=== PATIENT | female | born 1935 | race Caucasian/White ===

== ENCOUNTER 2019-10-30 14:57 | Inpatient (IN) ==
[2019-10-30] MEDS ORDERED: MORPHINE IV ONE (15:05)
[2019-10-30] MEDS ORDERED: ATIVAN IV ONE (15:05)
[2019-10-30] MEDS ORDERED: NS 1,000 ML IV ONE (15:05)
[2019-10-30] MEDS ORDERED: ZOFRAN IV ONE (15:05)
[2019-10-30] MEDS ORDERED: HALDOL IV ONE (15:07)
--- NOTE | 2019-10-30 15:34 | Diag Imaging Result Doc PS360 ---
EXAM: CHEST-PORTABLE HISTORY: fall TECHNIQUE: Single view COMPARISON: None. FINDINGS: The lungs are well expanded. No contusion. No pneumothorax. The heart is not enlarged. The vessels are not distended. There are no infiltrates. No effusion identified. IMPRESSION: No injury Electronically signed by Arvind Alfredo 10/30/2019 3:32 PM
[2019-10-30 16:48] LABS: BASO# 0.03 X1000 (0.0-0.2); BASO% 0.1 % (0.0-0.8); EOS# 0.01 X1000 (0.0-0.7); HEMATOCRIT 32.2 % (37.0-47.0); HEMOGLOBIN 10.4 g/dL (12.0-16.0); IMM GRAN# 0.08 X1000 (0.0-0.04); IMM GRAN% 0.4 % (0.0-0.5); LYMPH% 4.4 % (20.5-51.1); MCH 30.7 PG (27-31); MCHC 32.3 g/dL (33-37); MONO% 9.4 % (1.7-9.3); MPV 9.5 FL (7.4-10.4); NEUT# 17.37 X1000 (1.4-6.5); NEUT% 85.7 % (42.2-75.2); PLT 369 X1000 (130-400); RBC 3.39 XMIL (4.2-5.4); RDW 13.4 % (11.5-14.5); WBC 20.29 X1000 (4.8-10.8)
[2019-10-30 16:55] LABS: INR 1.13; PROTIME 14.7 Seconds (11.0-16.0)
[2019-10-30 16:56] LABS: PTT 32.7 Seconds (22.3-41.8)
[2019-10-30 17:04] LABS: AGAP 17; ALB/GLOB RATIO 1.8; ALBUMIN 3.5 g/dL (3.5-5.0); ALKALINE PHOSPHATASE 48 U/L (32-104); BUN 14 mg/dL (8-22); CHLORIDE 100 mmol/L (98-107); CK PROFILE 33 U/L (24-173); COSMO 279; CREATININE 0.6 mg/dL (0.5-0.9); ESTIMATED GFR > 60; GLUCOSE 91 mg/dL (70-104); GOT 23 U/L (10-30); GPT 10 U/L (10-36); LIPASE 9 U/L (13-60); MAGNESIUM 1.6 mg/dL (1.5-2.7); POTASSIUM 3.8 mmol/L (3.5-5.1); SODIUM 140 mmol/L (136-145); TCO2 23 mmol/L (25-35); TOTAL BILIRUBIN 0.74 mg/dL (0.20-1.00); TOTAL PROTEIN 5.5 g/dL (6.3-8.3)
--- NOTE | 2019-10-30 17:38 | Diag Imaging Result Doc PS360 ---
EXAM: CT HEAD/C-SPINE W/O CONTRAST - 10/30/2019 HISTORY: head injury/pain TECHNIQUE: CT head/cervical spine without contrast COMPARISON: None. FINDINGS: CT head: There are atrophic changes and chronic appearing microvascular ischemic changes. There is no indication of recent infarct, although acute infarcts may not be immediately visible. There is no evidence of skull fracture. Visualized portions of paranasal sinuses and mastoid air cells appear clear. CT cervical spine: There is multilevel degenerative disease with posterior disc protrusions, posterior osteophytes, and facet degeneration. There is associated moderate spinal stenosis at C5-6 and C6-7. There is multilevel neural foraminal stenosis. There is no fracture, subluxation, or precervical soft tissue swelling identified. There are atherosclerotic calcifications noted at the carotid bulb regions. IMPRESSION: CT head: No visible acute intracranial abnormality. No evidence of intracranial injury. CT cervical spine: Substantial multilevel degenerative disease. No evidence of fracture or subluxation. This exam was performed using automated exposure control, adjustment of mA or kV according to patient size, and/or use of iterative reconstruction technique. Electronically signed by Sheldon Dowell 10/30/2019 5:36 PM
--- NOTE | 2019-10-30 17:42 | Diag Imaging Result Doc PS360 ---
EXAM: CT PELVIS W/O CONTRAST - 10/30/2019 HISTORY: fall with right femoral neck fracture TECHNIQUE: CT bony pelvis without contrast COMPARISON: None. FINDINGS: There is a fracture of the right femoral neck with mild impaction. There is no other fracture identified. There is no hip dislocation. IMPRESSION: Fracture of right femoral neck, with mild impaction. This exam was performed using automated exposure control, adjustment of mA or kV according to patient size, and/or use of iterative reconstruction technique. Electronically signed by Sheldon Dowell 10/30/2019 5:40 PM
[2019-10-30] MEDS ORDERED: ROCEPHIN 1 GM in NS 50 ML IV ONE (17:43)
--- NOTE | 2019-10-30 18:07 | PROVIDER DOCUMENTATION ---
This chart was entered by Cecily Hogan Scribe, acting as scribe for Monroe Diamond MD. HPI-Musculoskeletal Pain/Inj - GENERAL Stated Complaint: FALL Time Seen by Provider: 10/30/19 14:57 Source: EMS - HX OF PRESENT ILLNESS-MUSKULOSKELTAL Nature of Presenting Problem: Patient is a 84 year old female who presents to the ED via EMS for right hip fracture. EMS states SNF stated patient fell around 0800 this morning. EMS reports SNF had an xray done and xray resulted as acute displaced right femoral neck fracture. EMS states patient has dementia and SNF reported patient being at baseline. Quality of Pain: reports: aching Severity in ED: mild Onset/Duration: this morning (0800) Timing: still present Any recent injury?: Yes (fall ) Locality of Occurance: Home Similar Symptoms Previously?: No Recently seen or treated by another doctor?: No - FALL INJURY Location of Pain/Injury: reports: other (right hip) Reason for Fall: reports: unknown Loss of Consciousness: unsure - HIP/PELVIS PAIN/INJURY Hip Pain Location: reports: hip (R) Context / Method of Injury: reports: fall - LOWER EXTREMITY PAIN/INJURY Lower Extremities Pain: hip: right Context / Method of Injury: reports: fell Review of Systems - Adult - REVIEW OF SYSTEMS - ADULT ROS:: unobtainable per condition (unable to obtain due to patient having dementia.) Constitutional: reports: no symptoms reported Eyes: reports: no symptoms reported Ears, Nose, Mouth & Throat: reports: no symptoms reported Cardiovascular: reports: no symptoms reported Respiratory: reports: no symptoms reported Gastrointestinal: reports: no symptoms reported Genitourinary: reports: no symptoms reported Musculoskeletal: reports: no symptoms reported Integumentary: reports: no symptoms reported Neurological: reports: no symptoms reported Psychiatric: reports: no symptoms reported Endocrine: reports: no symptoms reported Hematologic/Lymphatic: reports: no symptoms reported Allergic/Immunologic: reports: no symptoms reported All Other Systems: Reviewed and Negative Past History - Adult - PAST MEDICAL HISTORY-ADULT Review of Records: reports: Old Records Reviewed, Nursing Assessment Review, Medications Reviewed, Social history reviewed & non-contributory. Major Childhood Illnesses: reports: denies history Cardiovascular: reports: denies history Respiratory: reports: denies history Gastrointestinal: reports: denies history Obstetrical/Gynecological: reports: denies history Genitourinary: reports: denies history Musculoskeletal: reports: denies history Neurological: reports: dementia Endocrine/Immune: reports: denies history Other Conditions: reports: denies history - IMMUNIZATION STATUS Childhood Immunizations: See Nurse Assessment Flu Vaccine: See Nurse Assessment - FAMILY HISTORY Family History: reviewed, not pertinent - SOCIAL HISTORY Smoking: other (unable to obtain due to patient having dementia) Substance Use: other (unable to obtain due to patient having dementia) Living Situation: care facility (SNF) Physical Exam-Injury Related - Physical Exam-Injury Related Initial Vital Signs Reviewed: Yes General Appearance: alert, no apparent distress, other (mumbling continuously). negative: obtunded Head, Ears, Nose, Mouth & Throat: normocephalic/atraumatic, other (dry mucous membranes). negative: angioedema Respiratory: chest non-tender, lungs clear, normal breath sounds. negative: rhonchi, wheezing Cardiovascular: regular rate, rhythm, systolic murmur (2/6 systolic murmur at apex). negative: tachycardia Abdominal Exam: normal bowel sounds, non tender, soft. negative: rigid Extremity: other (1 + pitting edema to bilateral lower extremities. right leg shortened. pain on movment to right leg.). negative: erythema Integumentary: normal color, warm/dry. negative: abrasion, laceration Neurologic: other (unable to assess per patient's condition) Progress - PLAN OF CARE/RESULTS Progress/Plan/Lab Results: Vital Signs - 8 hr 10/30/19 15:17 Temperature 99.1 F Pulse Rate 98 H Respiratory Rate 18 Blood Pressure 163/106 O2 Sat by Pulse Oximetry 99 Laboratory Results - last 24 hr 10/30/19 10/30/19 10/30/19 16:10 16:10 16:10 WBC 20.29 H RBC 3.39 L Hgb 10.4 L Hct 32.2 L MCV 95.0 MCH 30.7 MCHC 32.3 L RDW Std Deviation 13.4 Plt Count 369 MPV 9.5 Immature Gran % (Auto) 0.4 Neut % (Auto) 85.7 H Lymph % (Auto) 4.4 L Pershing % (Auto) 9.4 H Eos % (Auto) 0.0 Baso % (Auto) 0.1 Immature Gran # (Auto) 0.08 H Neut # (Auto) 17.37 H Lymph # (Auto) 0.90 L Pershing # (Auto) 1.90 H Eos # (Auto) 0.01 Baso # (Auto) 0.03 PT INR PTT (Actin FS) Sodium 140 Potassium 3.8 Chloride 100 Carbon Dioxide 23 L Anion Gap 17 BUN 14 Creatinine 0.6 Estimated GFR/1.73 m2 > 60 BUN/Creatinine Ratio 23 Glucose 91 POC Glucose Calculated Osmolality 279 Calcium 9.0 Magnesium 1.6 Total Bilirubin 0.74 AST 23 ALT 10 Alkaline Phosphatase 48 Creatine Kinase 33 Troponin T Rdc-B-Uheatgpcdaf Pept Total Protein 5.5 L Albumin 3.5 Globulin 2.0 Albumin/Globulin Ratio 1.8 Lipase 9 L Plasma Lactate Valproic Acid 51.90 10/30/19 10/30/19 10/30/19 16:10 16:10 16:10 WBC RBC Hgb Hct MCV MCH MCHC RDW Std Deviation Plt Count MPV Immature Gran % (Auto) Neut % (Auto) Lymph % (Auto) Pershing % (Auto) Eos % (Auto) Baso % (Auto) Immature Gran # (Auto) Neut # (Auto) Lymph # (Auto) Pershing # (Auto) Eos # (Auto) Baso # (Auto) PT 14.7 INR 1.13 PTT (Actin FS) 32.7 Sodium Potassium Chloride Carbon Dioxide Anion Gap BUN Creatinine Estimated GFR/1.73 m2 BUN/Creatinine Ratio Glucose POC Glucose Calculated Osmolality Calcium Magnesium Total Bilirubin AST ALT Alkaline Phosphatase Creatine Kinase Troponin T Gpg-W-Jfdplejzozk Pept 1864 H Total Protein Albumin Globulin Albumin/Globulin Ratio Lipase Plasma Lactate 1.0 Valproic Acid 10/30/19 10/30/19 16:10 16:16 WBC RBC Hgb Hct MCV MCH MCHC RDW Std Deviation Plt Count MPV Immature Gran % (Auto) Neut % (Auto) Lymph % (Auto) Pershing % (Auto) Eos % (Auto) Baso % (Auto) Immature Gran # (Auto) Neut # (Auto) Lymph # (Auto) Pershing # (Auto) Eos # (Auto) Baso # (Auto) PT INR PTT (Actin FS) Sodium Potassium Chloride Carbon Dioxide Anion Gap BUN Creatinine Estimated GFR/1.73 m2 BUN/Creatinine Ratio Glucose POC Glucose 83 Calculated Osmolality Calcium Magnesium Total Bilirubin AST ALT Alkaline Phosphatase Creatine Kinase Troponin T 0.014 Smd-X-Snbcgguegsi Pept Total Protein Albumin Globulin Albumin/Globulin Ratio Lipase Plasma Lactate Valproic Acid Orders Category Date Time Status Finger Stick Blood Sugar (ED) DIRECTED Care 10/30/19 15:01 Active M[facility] Cath Insertion ORDERED Care 10/30/19 15:01 Active Nursing- Obtain EKG once Care 10/30/19 15:01 Active Saline Loc NOW Care 10/30/19 15:02 Active CHEST-PORTABLE [RAD] Stat Exams 10/30/19 15:[address] HEAD/C-SPINE W/O CONTRAST [CT] Stat Exams 10/30/19 15:[address] PELVIS W/O CONTRAST [CT] Stat Exams 10/30/19 15:04 Completed BLOOD CULTURE [BLDCUL] Stat Lab 10/30/19 15:02 Uncollected CBC WITH ELECTRONIC DIFF [HEME] Stat Lab 10/30/19 16:10 Completed CK PROFILE [SP CHEM] Stat Lab 10/30/19 16:10 Completed COMPREHENSIVE METABOLIC PANEL [CHEM] Stat Lab 10/30/19 16:10 Completed INFLUENZA SCREEN A/B Stat Lab 10/30/19 15:02 Uncollected LACTATE, PLASMA [CHEM] Stat Lab 10/30/19 16:10 Completed LIPASE [CHEM] Stat Lab 10/30/19 16:10 Completed MAGNESIUM [CHEM] Stat Lab 10/30/19 16:10 Completed PRO B-NATRIURETIC PEPTIDE Stat Lab 10/30/19 16:10 Completed PROTIME WITH INR [COAG] Stat Lab 10/30/19 16:10 Completed PTT [COAG] Stat Lab 10/30/19 16:10 Completed TROPONIN T Stat Lab 10/30/19 16:10 Completed TYPE & SCREEN [BBK] Stat Lab 10/30/19 15:03 Uncollected URINALYSIS W/POSS RFLX CULT [URINALYSIS] Stat Lab 10/30/19 15:03 Uncollected VALPROIC ACID [TDM] Stat Lab 10/30/19 16:10 Completed 0.9% Sodium Chloride Inj [Ns] 1,000 ml Med 10/30/19 15:05 Discontinued IV 999 mls/hr CefTRIAXONE [Rocephin] 1 gm Med 10/30/19 17:43 Active 0.9% Sodium Chloride Inj [Ns] 50 ml IV NOW Haloperidol Lactate [Haldol] Med 10/30/19 15:07 Discontinued 2 mg IV NOW ONE Lorazepam [Ativan] Med 10/30/19 15:05 Discontinued 0.5 mg IV NOW ONE Morphine Med 10/30/19 15:05 Discontinued 2 mg IV NOW ONE Ondansetron [Zofran] Med 10/30/19 15:05 Discontinued 4 mg IV NOW ONE EKG [EKG] Stat Ther 10/30/19 15:02 Ordered Result Diagrams: 10/30/19 16:10 10/30/19 16:10 - XRAY 1 XRAY Study: Chest Impression: See EMR Report ( EXAM: CHEST-PORTABLE HISTORY: fall TECHNIQUE: Single view COMPARISON: None. FINDINGS: The lungs are well expanded. No contusion. No pneumothorax. The heart is not enlarged. The vessels are not dis tended. There are no infiltrates. No effusion identified. IMPRESSION: No injury Electronically signed by Arvind Alfredo 10/30/2019 3:32 PM 10/30/19 1532 Interpreting Physician: rAvind Alfredo MD Dictated Date/Time: 10/30/19 1531 cc: Monroe Diamond MD; Etienne Ortiz MD) - CONSULTS/PCP/HOSPITALIST Notification #1 *Consult/PCP/Hospitalist*: Porfirio Time Discussed: 18:04 Reason/Comments: NPO after MN Consult Disposition: Admit (to hospitalist) #2 Consult: Rajani Time Discussed: 18:05 Consult Disposition: Will see in ED, Admit Departure - Departure Date of Disposition Decision: 10/30/19 Time of Disposition Decision: 18:05 DIAGNOSIS: Displaced fracture of right femoral neck, Urinary tract infection, bacterial Fall at correction Qualifiers: Encounter type: initial encounter Qualified Code(s): W19.XXXA - Unspecified fall, initial encounter; Y92.129 - Unspecified place in correction as the place of occurrence of the external cause Alzheimer's dementia without behavioral disturbance Qualifiers: Alzheimer's disease onset: late-onset Qualified Code(s): G30.1 - Alzheimer's disease with late onset; F02.80 - Dementia in other diseases classified elsewhere without behavioral disturbance Disposition: ADMITTED INPATIENT 09 Certified Medical Emergency: Emergent Condition: Fair Referrals and Follow-Ups: Etienne Ortiz MD [Primary Care Provider] - - Critical Care Note This patient required my direct & personal management of CC.: No Attestation - Physician/ ROLLY Attestation Patient care was provided by Advanced Practice Provider:: No The physician spent face to face time with patient:: Yes Advanced Practice Provider documentation review:: Supervising physician onsite and consulted in the evaluation and care of this patient. The physician did have a face to face encounter with the patient. This chart was documented by the indicated scribe, (Cecily Hogan Scribe) and accurately reflects the services I performed and decisions made by me, Monroe Diamond MD, as attested by the provider's signature.
[2019-10-30 18:24] LABS: URINE SOURCE CLEAN CATCH
[2019-10-30] MEDS ORDERED: TYLENOL PO PRN ×2 (18:29→20:33)
[2019-10-30 18:31] LABS: BILIRUBIN URINE NEGATIVE (NEGATIVE); BLOOD URINE TRACE (NEGATIVE); COLOR YELLOW; GLUCOSE URINE NEGATIVE (NEGATIVE); KETONE URINE 40 mg/dL (NEGATIVE); LEUKOCYTES URINE LARGE (NEGATIVE); NITRITE URINE POSITIVE (NEGATIVE); PH URINE 6.5; PROTEIN URINE TRACE mg/dL (NEGATIVE); SP GRAVITY URINE 1.015; TURBIDITY URINE HAZY (CLEAR); UROBILINOGEN URINE NORMAL (NORMAL)
[2019-10-30 18:33] LABS: UR EPITHELIAL CELLS <10 /HPF (<10); URINE BACTERIA 4+ /HPF; URINE RBC <10 /HPF (<10); URINE WBC TNTC /HPF (<10)
[2019-10-30] MEDS ORDERED: STERILE WATER INJ. INJ PRN (20:33)
[2019-10-30] MEDS: LEVAQUIN 500 MG/D5W 500 MG/100 ML IVPB IV SCH (20:33)
[2019-10-30] MEDS ORDERED: MILK OF MAGNESIA PO PRN (20:33)
[2019-10-30] MEDS ORDERED: GEODON IM PRN (20:33)
[2019-10-30] MEDS ORDERED: MIRALAX PO PRN (20:33)
[2019-10-30] MEDS ORDERED: DEPAKOTE ER PO SCH (21:00)
--- NOTE | 2019-10-30 21:53 | EKG Report ---
Test Performed on : 10/30/2019 8:05:13 PM Test Reason : fall Blood Pressure : / mmHG Vent. Rate : 095 BPM Atrial Rate : 101 BPM P-R Int : 000 ms QRS Dur : 074 ms QT Int : 326 ms P-R-T Axes : 000 025 -12 degrees QTc Int : 409 ms Atrial fibrillation. with premature ventricular or aberrantly conducted complexes. Nonspecific ST and T wave abnormality Abnormal ECG When compared with ECG of 30-OCT-2019 20:04, (Unconfirmed) Inverted T waves have replaced nonspecific T wave abnormality in Inferior leads Unconfirmed Result
--- NOTE | 2019-10-30 22:03 | Diag Imaging Result Doc PS360 ---
EXAM: FEMUR MIN 2 VIEWS RIGHT - 10/30/2019 HISTORY: Hip Fracture TECHNIQUE: Right femur four views COMPARISON: 10/30/2019 CT bony pelvis FINDINGS: There is a mildly impacted fracture of the femoral neck as seen on the earlier CT. There is no other fracture, or dislocation, identified. There are atherosclerotic calcifications noted. IMPRESSION: Mildly impacted fracture of right femoral neck. Electronically signed by Sheldon Dowell 10/30/2019 10:00 PM
--- NOTE | 2019-10-30 22:04 | Diag Imaging Result Doc PS360 ---
EXAM: PELVIS - 10/30/2019 HISTORY: Hip Fracture TECHNIQUE: AP pelvis COMPARISON: 10/30/2019 CT bony pelvis FINDINGS: There is no pelvis fracture identified. There is a mildly impacted fracture of the right femoral neck as seen on the earlier CT scan. IMPRESSION: No evidence of pelvis fracture. There is mildly impacted fracture of right femoral neck again noted. Electronically signed by Sheldon Dowell 10/30/2019 10:01 PM
[2019-10-31] MEDS: NS 1,000 ML IV SCH ×4 (00:01→22:24)
[2019-10-31] MEDS: NAMENDA PO SCH ×2 (00:02→22:21)
[2019-10-31] MEDS: ARICEPT PO SCH ×2 (00:02→22:21)
[2019-10-31] MEDS: DEPAKOTE ER PO SCH ×3 (00:02→22:22)
[2019-10-31] MEDS: MORPHINE IV PRN ×4 (00:02→16:25)
--- NOTE | 2019-10-31 03:58 | HISTORY AND PHYSICAL ---
PRIMARY CARE PROVIDER: Unknown. CHIEF COMPLAINT: Per ED records, fall. HISTORY OF PRESENT ILLNESS: Ms. Santiago is an 84-year-old, female. All information is taken from the ED records, patient has dementia, no family is currently at bedside. Per [facility] records, she is a DNR. I do not have any official paperwork stating she is a DNR, Alzheimer's dementia, hypothyroidism, seizure disorder. She presented to the ED via EMS for right hip fracture. The patient was at [facility], fell around 8 a.m. this morning. She had x-rays done there that resulted as an acute displaced right femoral neck fracture. Workup in the ED with a pelvis CT showed a fracture of the right femoral neck with a mild impaction. Head and cervical spine CT showed no visible acute intracranial abnormality. No evidence of intracranial injury. Substantial multilevel degenerative disease, but no evidence of fracture, subluxation. Chest x- ray showed no injury. White count was elevated at 20. Urinalysis showed 4+ bacteria, large leukocytes, too numerous to count WBCs, nitrate positive, trace blood. ED contacted Dr. Ojeda, who requested admit to the hospitalist service. She will be n.p.o. after midnight. They did have to give her pain medication, Ativan and Haldol for agitation. Upon examination, the patient does not really answer any questions, she just mumbles any time I try to ask her any questions. She does not follow any commands. Again, there was no family at bedside. I did contact her nurse, states the family went to go grab some dinner and that they should be back shortly. PAST MEDICAL HISTORY: Seizures, hypothyroidism, Alzheimer's dementia, I believe there are some behavioral disturbances. FAMILY HISTORY: Unknown. SURGICAL HISTORY: Unknown. ALLERGIES: Albuterol, diazepam, Valium, influenza vaccine, penicillin, mayonnaise, mold, mildew, Oseltamivir. HOME MEDICATIONS: 1. Tylenol 650 mg p.o. q.4 hours p.r.n. 2. Briviact 50 mg p.o. b.i.d. 3. Buspirone 5 mg p.o. t.i.d. 4. Cranberry 2 capsules p.o. daily. 5. Depakote 250 mg p.o. b.i.d. 6. Depakote ER 500 mg p.o. b.i.d. 7. Aricept 10 mg p.o. at bedtime. 8. Acidophilus 1 tab p.o. daily. 9. Synthroid 25 mcg p.o. daily. 10. Milk of magnesia 200 mg p.o. q.a.m. constipation. 11. Namenda 5 mg p.o. at bedtime. 12. Pyridium 200 mg p.o. b.i.d. 13. MiraLAX 17 g p.o. daily. 14. MiraLAX 17 g p.o. daily p.r.n. constipation if the patient has not had a BM in 72 hours. 15. Aspercreme 85 g topical t.i.d. REVIEW OF SYSTEMS: Hard to obtain secondary to the patient's dementia as well as IV and sedating medications. PHYSICAL EXAMINATION: VITAL SIGNS: Temperature is 99.9 degrees, heart rate 98, respirations 18, blood pressure 163/106, O2 is 99% on room air. GENERAL: Ms. Santiago is an 84-year-old female who is lying in the bed. She does not really answer any questions or follow any commands. She just moans. HEENT: Appears atraumatic, normocephalic. PERRL. NECK: Supple. Trachea midline. CARDIOVASCULAR: S1, S2 appreciated. No murmurs, gallops, rubs noted. RESPIRATORY: Lung sounds clear. Shallow respirations. GASTROINTESTINAL: Soft, nontender, nondistended. Positive bowel sounds 4 quadrants. EXTREMITIES: Lower extremities, did not appreciate any edema. NEURO: Again, she is not following any commands. Hard to assess secondary to her dementia as well as being sedated. DIAGNOSTIC DATA: Pelvis, head and cervical spine CT per HPI. LABORATORY DATA: White count 20, hemoglobin and hematocrit 10 and 32, platelet count is 369,000. Sodium 140, potassium 3.8, BUN 14, creatinine 0.6. Blood glucose is 91. Magnesium 1.6. Troponin 0.014. ProBNP 1864. Plasma lactate 1.0. Urinalysis: 4+ bacteria, too numerous to count WBCs, leukocytes large, positive for nitrates, trace blood. Valproic acid 51.9. ASSESSMENT AND PLAN: 1. Right femoral neck fracture with mild impaction. The patient will be made NPO after midnight. We will start IV fluids, pain regimen. Dr. Ojeda plans for surgery in the a.m. Apparently, the patient has suffered a fall at [facility]. There is no family at the bedside. All information came from EMR. 2. Seizure history. We will continue Depakote. 3. Alzheimer's dementia. We will continue home medications. 4. Hypothyroidism. We will continue Synthroid. 5. Patient is a possible DO NOT RESUSCITATE. This will have to be confirmed with family. I do not have any official paperwork, just on the transfer sheet from the skilled nursing. 6. Initial agitation on arrival. We will do p.r.n. Geodon IM q.6 hours. 7. Urinary tract infection. We will await urine culture and continue with IV antibiotics. She does have an allergy to PENICILLIN. We will switch her over to levofloxacin from Rocephin. 8. Further recommendation to follow physician evaluation, laboratory and diagnostic data. Dictated by FERNANDO Carey for Ines South MD cc: Ines South MD I performed a face to face encounter on the patient. I reviewed all labs and imaging on the patient. I agree with the H&P as dictated. is a 84 year old female with advanced dementia and seizure disorder who was brought to the ER after suffering a fall at the skilled nursing. In the ER, a right hip x ray was done that revealed a right femoral neck fracture. On exam, the patient was noted to be oriented to self only. Her breath sounds were clear to auscultation bilaterally. No peripheral edema was noted. The patient was also noted to have a urinary tract infection. Will admit the patient to the hospitalist service and consult Orthopedic surgery. Will start IV fluids and IV antibiotics. POWER
[2019-10-31 06:58] LABS: BASO# 0.04 X1000 (0.0-0.2); BASO% 0.3 % (0.0-0.8); EOS# 0.19 X1000 (0.0-0.7); EOS% 1.3 % (0.0-10.0); HEMATOCRIT 29.7 % (37.0-47.0); HEMOGLOBIN 9.5 g/dL (12.0-16.0); IMM GRAN% 0.7 % (0.0-0.5); LYMPH# 1.43 X1000 (1.2-3.4); LYMPH% 9.6 % (20.5-51.1); MCH 30.6 PG (27-31); MCV 95.8 FL (81-99); MONO# 1.53 X1000 (0.11-0.59); MONO% 10.2 % (1.7-9.3); MPV 9.7 FL (7.4-10.4); NEUT# 11.66 X1000 (1.4-6.5); NEUT% 77.9 % (42.2-75.2); PLT 318 X1000 (130-400); RDW 13.3 % (11.5-14.5); WBC 14.95 X1000 (4.8-10.8)
[2019-10-31 07:43] LABS: AGAP 15; BUN 8 mg/dL (8-22); CALCIUM 8.3 mg/dL (8.8-10.2); CHLORIDE 101 mmol/L (98-107); COSMO 273; CREATININE 0.4 mg/dL (0.5-0.9); ESTIMATED GFR > 60; GLUCOSE 76 mg/dL (70-104); POTASSIUM 3.6 mmol/L (3.5-5.1); SODIUM 138 mmol/L (136-145); TCO2 22 mmol/L (25-35)
[2019-10-31 07:56] LABS: MAGNESIUM 1.4 mg/dL (1.5-2.7); PHOSPHORUS 2.5 mg/dL (2.7-4.5)
--- NOTE | 2019-10-31 08:54 | ORTHOPAEDICS CONSULTATION ---
DATE: 10/30/2019 Consult from [facility]. REASON FOR CONSULTATION: Right hip fracture. PAST MEDICAL HISTORY: 1. Seizure disorder. 2. Hypothyroidism. 3. Alzheimer's dementia. 4. Osteoporosis. PAST SURGICAL HISTORY: Pacemaker placement in July of this year. MEDICATIONS: 1. Tylenol. 2. Broviac. 3. Buspirone. 4. Depakote. 5. Aricept. 6. Acidophilus. 7. Synthroid. 8. Namenda. 9. Pyridium. 10. MiraLAX. ALLERGIES: The patient's daughter reports her to have allergy to albuterol, Valium and penicillin. SOCIAL HISTORY: Patient lives at [facility] in the memory loss unit. She has been at [facility] since August of this year. Prior to this she was living at home and was much more mobile and functional. Since her pacemaker placement in July she has had a significant decline in her mental status. Denies any tobacco or alcohol use. She uses a walker to ambulate. REVIEW OF SYSTEMS: Ten point review of systems was completed and is negative other than what is listed in present illness. CHIEF COMPLAINT: Right hip pain. HISTORY OF PRESENT ILLNESS: Ms Santiago is a 84-year-old female who presented to [facility] yesterday after sustaining a same-level fall at [facility] yesterday morning. X-rays taken in the ER demonstrated a right valgus impacted femoral neck fracture. Given these findings, Orthopedic Surgery was consulted. All history was obtained from patient's daughter. The patient is DNR and the paperwork is on the chart. The daughter said she has had a significant decline in mental status since her pacemaker placed back in July of this year. She had about a 2 week period where she basically went into a medically induced coma and lost a significant amount of muscle and strength during that time. Since then, she has had a hard time ambulating and has fallen about 10 times since August per the daughter. She has no other complaints. PHYSICAL EXAMINATION: General: Ms. Santiago is an 84-year-old female who appears well developed, no acute distress. She is awake and alert but not oriented to person, place, or time. Vital signs: Temperature is 97.7 degrees Fahrenheit, heart rate 89, respiratory rate 14, blood pressure 141/69, O2 saturations 96% on binasal cannula. HEENT: Normocephalic and atraumatic. Respiratory: Nonlabored breathing. Cardiovascular: Regular rate and rhythm. Extremities: Examination of right lower extremity shows skin intact. The patient has tenderness to palpation over her right groin and thigh. She has pain with log roll. Nontender in her knee, leg, ankle and foot. Motor is intact EHL, tibialis anterior, gastrocsoleus complex. Sensation intact to light touch L3-S1. Dorsalis pedis pulse palpable and equal bilaterally. Thigh and calf were soft and compressible. IMAGING: AP pelvis as well as AP and lateral of the right femur were obtained demonstrating a valgus impacted femoral neck fracture with minimal displacement. Patient has osteopenic appearing bones. CT scan of the pelvis was also obtained demonstrating a minimally displaced valgus impacted femoral neck fracture. LABORATORY DATA: White count 15, hematocrit 30, platelets 318,000. Sodium 138, potassium 3.6, chloride 101, bicarb 22, BUN 8, creatinine 0.4. Urinalysis significantly positive with positive urine nitrites, large leukocyte esterase and uij-okgqpqsd-wg-count white cells and 4+ bacteria. ASSESSMENT: An 84-year-old female with right valgus impacted femoral neck fracture as well as a significant urinary tract infection. PLAN: Patient has been n.p.o. since midnight. Long discussion was had with the patient and her daughter in regards to treatment options for femoral neck fracture. Given the fracture pattern, I think it is conducive for a closed reduction and percutaneous pinning. This is a much less invasive procedure which I think will be a good for her overall mental status. Risks of surgery include risk of bleeding, infection, damage to nerves and vessels around the area, malunion, nonunion, failure of fixation and need for revision surgery. Also risks of anesthesia including blood clot, stroke, heart attack, even . The patient recently underwent anesthesia for placement of a pacemaker and has had a significant decline in mental status since that time. I told her we will talk with Anesthesia and try to do it via spinal anesthetic, however, if we are unable to obtain that she may have to undergo general anesthesia. All questions were answered. Informed consent was obtained. The plan will be for right hip CRPP later today when OR space is available. Again, keep her n.p.o. until after procedure. Nonweightbearing, right lower extremity until postop. Hold chemical DVT prophylaxis until postoperative. She will need likely 6 week course of anticoagulation upon discharge. Ice to right lower extremity as needed for pain.
[2019-10-31] MEDS: SYNTHROID PO SCH ×2 (11:48→22:20)
[2019-10-31 17:35] LABS: ALLEN TEST YES; BE 0.9 mmoll (-3.0-3.0); BLOOD TYPE ARTERIAL; HCO3-(ACT) 25.6 mmoll (20.0-26.0); METHB 1.4 % (0.0-1.5); O2(CT) 13.9 mL/dL (15.0-23.0); O2HB 95.5 % (95.0-99.0); PCO2(98.6) 38 mmHg (35-45); PO2(98.6) 102 mmHg (60-100); SAMPLE BLOOD; SAO2 97.7 % (95.0-100.0); THB 10.2 g/dL (11.5-17.4); pH(98.6) 7.43 (7.35-7.45)
[2019-10-31 17:36] LABS: MODALITY CANNULA
[2019-10-31] MEDS ORDERED: LOVENOX SUBQ ONE (18:17)
[2019-10-31] MEDS ORDERED: MAGNESIUM SULFATE 2 GM/S.W.I. 2 GM/50 ML IVPB IV ONE (19:18)
--- NOTE | 2019-10-31 20:50 | PROGRESS NOTE ---
DATE: 10/31/2019 SUBJECTIVE: The patient is resting comfortably in bed. OBJECTIVE: Vital Signs: Temperature 98.6 degrees, blood pressure 176/73, heart rate 89, respirations 20, O2 saturation 98% on 3 L nasal cannula. General: This is a chronically ill- appearing elderly female lying in bed in no acute distress. Heart: S1, S2 normal. Regular rate and rhythm. Lungs: Clear to auscultation bilaterally. Abdomen: Positive bowel sounds. Soft, nontender, nondistended. Extremities: No edema. No cyanosis. Neurologic: The patient is only oriented to self. LABS: White blood cell count 14, hemoglobin 9.5, hematocrit 29, platelets 318,000. Sodium 138, potassium 3.6, chloride 101, CO2 22, BUN 8, creatinine 0.4, glucose 76, magnesium 1.4, phosphorus 2.5. ASSESSMENT AND PLAN: 1. Right femoral neck fracture. The patient is scheduled to go to the operating room tomorrow. 2. Urinary tract infection. The urine culture is growing gram-negative rods. Continue with Levaquin. 3. Advanced Alzheimer's dementia. Continue on Aricept and Namenda. 4. Leukocytosis. Slightly improved. Continue with antibiotic therapy. 5. Hypothyroidism. Continue on Synthroid. 6. Deep vein thrombosis prophylaxis continue with sequential compression devices. cc: Ines South MD MTDD
--- NOTE | 2019-10-31 22:19 | ORTHOPAEDICS PROGRESS NOTE ---
DATE: 10/31/2019 SUBJECTIVE: No acute events. The patient has been n.p.o. for planned surgery today. The patient's urine culture is growing gram-negative rods. She is on Levaquin. OBJECTIVE: Examination of the right lower extremity shows skin intact. Tender to palpation around her hip. Thigh and calf soft and compressible. Neurovascularly intact. Examination of the right elbow shows skin intact. No ecchymosis, swelling or bruising. Full range of motion of the elbow with flexion and extension, as well as pronation and supination of the forearm. Neurovascularly intact in the right upper extremity. ASSESSMENT: An 84-year-old female with right valgus impacted femoral neck fracture. PLAN: 1. The patient was given a diet today due to no OR availability. We will make her n.p.o. at midnight tonight and plan on surgery tomorrow morning around 10:30. Surgery will be CRPP of her right femoral neck fracture. She needs to remain nonweightbearing until postoperative period. 2. I will give her a dose of Lovenox this evening. Hold chemical anticoagulation tomorrow morning until postoperative period. 3. Ice as needed to the right lower extremity. 4. Appreciate hospitalist recommendations.
[2019-10-31] MEDS: LEVAQUIN 500 MG/D5W 500 MG/100 ML IVPB IV SCH (22:21)
[2019-11-01] MEDS: NS 1,000 ML IV SCH ×3 (04:56→22:21)
[2019-11-01] MEDS: MORPHINE IV PRN ×3 (06:15→17:49)
[2019-11-01 06:30] LABS: BASO# 0.03 X1000 (0.0-0.2); BASO% 0.2 % (0.0-0.8); EOS# 0.04 X1000 (0.0-0.7); EOS% 0.3 % (0.0-10.0); HEMATOCRIT 29.8 % (37.0-47.0); HEMOGLOBIN 9.4 g/dL (12.0-16.0); IMM GRAN# 0.11 X1000 (0.0-0.04); IMM GRAN% 0.9 % (0.0-0.5); LYMPH# 0.76 X1000 (1.2-3.4); LYMPH% 6.3 % (20.5-51.1); MCH 30.1 PG (27-31); MCHC 31.5 g/dL (33-37); MCV 95.5 FL (81-99); MONO% 11.6 % (1.7-9.3); MPV 9.7 FL (7.4-10.4); NEUT# 9.77 X1000 (1.4-6.5); NEUT% 80.7 % (42.2-75.2); PLT 326 X1000 (130-400); RBC 3.12 XMIL (4.2-5.4); RDW 13.1 % (11.5-14.5); WBC 12.11 X1000 (4.8-10.8)
[2019-11-01 06:51] LABS: AGAP 15; BUN 4 mg/dL (8-22); CALCIUM 8.1 mg/dL (8.8-10.2); CHLORIDE 100 mmol/L (98-107); COSMO 269; CREATININE 0.4 mg/dL (0.5-0.9); ESTIMATED GFR > 60; GLUCOSE 95 mg/dL (70-104); POTASSIUM 3.3 mmol/L (3.5-5.1); SODIUM 136 mmol/L (136-145); TCO2 21 mmol/L (25-35)
[2019-11-01] MEDS ORDERED: POTASSIUM PHOSPHATE 40 MMOL in NS 250 ML IV ONE (07:32)
[2019-11-01] MEDS: SYNTHROID PO SCH (08:32)
[2019-11-01] MEDS ORDERED: DIPRIVAN 1% ONE (10:27)
[2019-11-01] MEDS ORDERED: XYLOCAINE-MPF 2% ONE (10:28)
[2019-11-01] MEDS ORDERED: CLINDAMYCIN 600 MG/D5W 600 MG/50 ML IVPB IV ONE (10:30)
--- NOTE | 2019-11-01 10:36 | ORTHOPAEDICS PROGRESS NOTE ---
DATE: 11/01/2019 SUBJECTIVE: No acute events overnight. Patient is doing okay. She still reports pain in her right hip. She has been n.p.o. since midnight. No other complaints. OBJECTIVE: Hematocrit is 30. Extremities: Examination of right lower extremity reveals skin to be intact. Patient is tender to palpation over the lateral aspect of her right hip. Nontender in her knee, leg, ankle, and foot. Toes are up and downgoing. Sensation is grossly intact L3 to S1. Dorsalis pedis pulse palpable. Thigh and calf soft and compressible. ASSESSMENT: An 84-year-old female with right valgus impacted femoral neck fracture. PLAN: 1. The patient is NPO for planned surgery this morning. We will plan on doing closed reduction and percutaneous pinning of her right femoral neck fracture. 2. Physical therapy to start postoperatively. 3. Ice right lower extremity as needed for pain. 4. Hold chemical DVT prophylaxis until postoperative. 5. Appreciate hospitalist recommendations. 6. The patient is on Levaquin for a UTI growing gram-negative rods.
[2019-11-01] MEDS ORDERED: MARCAINE 0.25% PF/EPI 1:200,000 ONE (10:48)
[2019-11-01] MEDS ORDERED: NEO-SYNEPHRINE ONE (11:00)
--- NOTE | 2019-11-01 12:47 | PROGRESS NOTE ---
DATE: 11/01/2019 SUBJECTIVE: The patient is resting comfortably. She is actually in the process of being wheeled to surgery for repair of her right femoral neck fracture. OBJECTIVE: Vital Signs: Blood pressure is 126/57, with a heart rate of 97, respirations are 22, temperature is 98.2 degrees, with room air saturations 93-95%. Cardiovascular: Regular rate and rhythm. S1 and S2 are appreciated. Peripheral pulses are palpable x4 extremities. Pulmonary: Breath sounds are clear with no increased work of breathing noted. Gastrointestinal: Abdomen is soft, nontender, nondistended, with bowel sounds in all 4 quadrants. Neurologic: The patient is oriented to herself. Labs: WBC is 12.1, with hemoglobin 9.4, hematocrit 29.8, and platelets of 326,000. Sodium 136, potassium 3.3, BUN 4, creatinine 0.4, with a glucose of 95. Urine culture preliminary is gram- negative rods. ASSESSMENT AND PLAN: 1. Right femoral neck fracture. The patient is going to the operating room now. 2. Gram-negative linda urinary tract infection. We will continue with Levaquin and further antibiotics will be culture driven. 3. Advanced Alzheimer's dementia. We will continue with Aricept and Namenda. 4. Leukocytosis. Continue with antibiotic therapy and follow. 5. Hypothyroid. Continue Synthroid. 6. Deep venous thrombosis prophylaxis. Lovenox was given per Dr. Ojeda. Further prophylaxis will be per Dr. Ojeda postoperatively. Dictated by FERNANDO Hopper for Ines South MD cc: FERNANDO Hopper MD
[2019-11-01] MEDS: DEPAKOTE ER PO SCH ×2 (13:26→21:00)
--- NOTE | 2019-11-01 19:46 | OPERATIVE NOTE ---
PROCEDURE DATE: 11/01/2019 PREOPERATIVE DIAGNOSIS: Right valgus impacted femoral neck fracture. POSTOPERATIVE DIAGNOSIS: Right valgus impacted femoral neck fracture. PROCEDURE: Closed reduction and percutaneous pinning of right valgus impacted femoral neck fracture. SURGEON: Taj Ojeda MD. HEALTH AND FITNESS PROFESSOR: Giorgio Edward RN. ANESTHESIA: Spinal anesthesia with conscious sedation. COMPLICATIONS: None. SPECIMENS: None. DRAINS: None. BLOOD LOSS: 30 mL. FINDINGS: Stable fixation of fracture. IMPLANTS: Synthes 7.3 mm titanium cannulated screws x3 measuring 85 mm, 80 mm, and 75 mm. INDICATIONS FOR PROCEDURE: Ms. Santiago is an 84-year-old female who presented to [facility] 2 days ago, after sustaining a same-level fall. Patient lives in nurses home in the Memory Unit and fell onto the right hip. X-rays demonstrated a right valgus impacted femoral neck fracture. Given these findings, surgical options were discussed with family and decision was made to proceed with closed reduction and percutaneous pinning of her fracture. Risks, benefits, alternative therapies were discussed with the patient and family regarding surgery. Risks of surgery include, but are not limited to, risks of bleeding, infection, damage to nerves and vessels around the area, continued pain following surgery, malunion, nonunion, need for revision surgery. There is also risk of anesthesia including blood clot, stroke, heart attack, even . Patient understands these risks. All questions were answered. Informed consent was obtained. PROCEDURE IN DETAIL: Ms. Santiago was identified by wrist band and greeted in preoperative holding area on 11/01/2019. Her right lower extremity which was the operative site was marked with indelible ink per AAOS sign and site protocol. Following this, the patient was transferred back to the operating room for surgery. Upon entering the OR, spinal anesthetic was induced. At this time, she was transferred in the supine position onto a [place] table. All bony prominences were well padded. Conscious sedation was then administered. At this time, both feet were placed into the well-padded boot holders into a scissored position. X-ray was brought in confirming adequate visualization and reduction of fracture. Once this was done, the right lower extremity was prepped and draped in routine sterile fashion. Formal time-out was performed confirming correct patient, procedure, operative site, operative side, administration of preoperative antibiotics. Everyone was in agreement. Patient received 600 mg of clindamycin prior to incision. A 15-blade knife was used to make a standard 3 cm incision on the lateral aspect of the thigh. Knife was used to dissect through skin, subcutaneous tissue, and IT band. Once this done, guidepin for the cannulated wire was then placed on the lateral aspect of the femur. We started with localizing and placing our inferior-most screw. Once we were satisfied with position on AP and lateral plane, the pin was driven up into the femoral head. At this time, we then used the Keith gun to localize placement of the posterior, superior, and anterior superior screws. Once all 3 wires were placed, AP and lateral images were taken confirming appropriate length and position of the screws. We then measured all 3 screws. The inferior screw was found to be 85 mm, anterior-superior screw was 75, and the posterior-superior screw was 80 mm. Once this was done, the cannulated drill bit was used to enter the lateral cortex of the inferior screw. We then placed the inferior screw by hand, which had good bite across the fracture. We then proceeded with drilling the lateral cortex on the posterior-superior screw with placement of this screw followed by the anterior-superior screw with placement of that screw. Once all 3 screws were in, they were all tightened sequentially and found to have excellent purchase. Guidewires were then removed. Final AP and lateral images were then taken and saved, confirming good position of screws across the neck and across the fracture site into the head. We then took sequential views of the hip going from straight lateral all the way up to the AP every 10 degrees, confirming extra- articular placement of the screw heads, which was indeed the fact. At this time, the wound was copiously irrigated with normal saline. Next, 2-0 Vicryl suture was used for closure of the IT band, followed by 2-0 Vicryl for subcutaneous tissue closure and vinicio for skin closure. Then, 20 mL of 0.5% Marcaine with epinephrine was then injected around our IT band and subcutaneous tissue for local analgesia. The patient was then transferred back over to hospital stretcher and taken to Recovery in stable condition. There were no acute complications during the procedure. All sponge and sharp counts were correct at conclusion of procedure.
[2019-11-01] MEDS: ARICEPT PO SCH (21:00)
[2019-11-01] MEDS: PERIDEX MT SCH (21:00)
[2019-11-01] MEDS: NAMENDA PO SCH (21:00)
[2019-11-01] MEDS: COLACE PO SCH (21:00)
[2019-11-01] MEDS: OXY IR PO PRN (22:20)
[2019-11-02] MEDS: NS 1,000 ML IV SCH ×3 (01:51→23:31)
[2019-11-02] MEDS: TYLENOL PR PRN ×2 (06:11→16:02)
[2019-11-02] MEDS: SYNTHROID PO SCH (06:11)
[2019-11-02] MEDS: LOVENOX SUBQ SCH (06:12)
[2019-11-02 06:48] LABS: HEMATOCRIT 29.4 % (37.0-47.0); HEMOGLOBIN 9.5 g/dL (12.0-16.0)
[2019-11-02 07:22] LABS: AGAP 13; BUN 4 mg/dL (8-22); CHLORIDE 102 mmol/L (98-107); COSMO 274; CREATININE 0.3 mg/dL (0.5-0.9); ESTIMATED GFR > 60; GLUCOSE 86 mg/dL (70-104); POTASSIUM 3.6 mmol/L (3.5-5.1); SODIUM 139 mmol/L (136-145); TCO2 24 mmol/L (25-35)
[2019-11-02] MEDS: FERROUS SULFATE PO SCH (09:57)
[2019-11-02] MEDS: DEPAKOTE ER PO SCH ×2 (09:57→23:27)
[2019-11-02] MEDS: PERIDEX MT SCH ×2 (09:57→23:27)
[2019-11-02] MEDS: COLACE PO SCH (23:26)
[2019-11-02] MEDS: NAMENDA PO SCH (23:27)
[2019-11-02] MEDS: ZOFRAN IV PRN (23:32)
[2019-11-02] MEDS: MORPHINE IV PRN (23:32)
[2019-11-03] MEDS: MORPHINE IV PRN ×2 (03:46→18:17)
[2019-11-03] MEDS: LOVENOX SUBQ SCH (06:49)
[2019-11-03] MEDS: NS 1,000 ML IV SCH (06:49)
[2019-11-03] MEDS: SYNTHROID PO SCH (06:50)
[2019-11-03 07:19] LABS: HEMATOCRIT 27.3 % (37.0-47.0); HEMOGLOBIN 8.9 g/dL (12.0-16.0); MCHC 32.6 g/dL (33-37); MCV 95.1 FL (81-99); MPV 9.6 FL (7.4-10.4); RBC 2.87 XMIL (4.2-5.4); RDW 13.1 % (11.5-14.5); WBC 9.31 X1000 (4.8-10.8)
--- NOTE | 2019-11-03 07:24 | PROGRESS NOTE ---
DATE: 11/02/2019 SUBJECTIVE: The patient is resting comfortably. She is pleasantly confused. OBJECTIVE: Vitals: Temperature 98 degrees, blood pressure 140/71, heart rate 84, respirations 16, O2 sats 95% on room air. General: This is a chronically ill-appearing, elderly female lying in bed in no acute distress. Heart: S1, S2 normal. Regular rate and rhythm. Lungs: Equal air entry bilaterally. No wheezing. No rales. No rhonchi. Abdomen: Positive bowel sounds. Soft, nontender, nondistended. Extremities: Trace pedal edema. Neurologic: The patient is awake but demented. LABS: Hemoglobin 9.5, hematocrit 29. Sodium 139, potassium 3.6, chloride 102, CO2 24, BUN 4, creatinine 0.3, glucose 86. ASSESSMENT AND PLAN: 1. Right femoral neck fracture, status post closed reduction and percutaneous pinning of the fracture. Management as per the general surgeon. 2. Urinary tract infection secondary to Escherichia coli. Continue with antibiotic therapy. 3. Advanced Alzheimer's dementia. Continue on Aricept and Namenda. 4. Anemia. Stable. 5. Constipation. Continue with laxative therapy. 6. Hypothyroidism. Continue on Synthroid. 7. Deep vein thrombosis prophylaxis. Continue on Lovenox. 8. Disposition. The patient will be discharged to inpatient rehab once cleared by the orthopedic surgeon. cc: Ines South MD
[2019-11-03 07:54] LABS: AGAP 16; BUN 4 mg/dL (8-22); CALCIUM 8.1 mg/dL (8.8-10.2); CHLORIDE 103 mmol/L (98-107); COSMO 275; CREATININE 0.4 mg/dL (0.5-0.9); ESTIMATED GFR > 60; GLUCOSE 78 mg/dL (70-104); POTASSIUM 3.2 mmol/L (3.5-5.1); SODIUM 140 mmol/L (136-145); TCO2 21 mmol/L (25-35)
[2019-11-03] MEDS: ARICEPT PO SCH (08:25)
[2019-11-03] MEDS: DEPAKOTE ER PO SCH ×2 (08:25→21:16)
[2019-11-03] MEDS: FERROUS SULFATE PO SCH (08:25)
[2019-11-03] MEDS: PERIDEX MT SCH ×2 (08:26→21:36)
[2019-11-03] MEDS ORDERED: KLOR-CON PO ONE (08:32)
--- NOTE | 2019-11-03 08:41 | ORTHOPAEDICS PROGRESS NOTE ---
DATE: 11/02/2019 SUBJECTIVE: No acute events overnight. The patient is postoperative day 1 after closed reduction and percutaneous pinning of her right hip. The patient's daughter reports she had some pain overnight, but since that time is doing well. Therapy stood her up at bedside, but patient did not wish to ambulate. She had decreased appetite since surgery. OBJECTIVE: Hematocrit 29. Extremity Examination: Right lower extremity shows surgical dressing to be clean, dry, intact. Thigh and calf soft and compressible. No apparent pain or grimacing with log roll of the right hip. Grossly neurovascularly intact. ASSESSMENT: An 84-year-old female status post closed reduction and percutaneous pinning to right femoral neck fracture. Postoperative day 1. PLAN: 1. Patient will be weightbearing as tolerated right lower extremity. Physical therapy to mobilize with rolling walker. 2. Ice to the right lower extremity as needed for pain. 3. Appreciate hospitalist recommendations. 4. Disposition per primary team. The patient lives in a memory unit at an assisted living facility. She will likely be discharged back to the rehab at her facility when medically stable. I will see her in clinic in 2 weeks for staple removal and wound check as well as x- rays.
[2019-11-03] MEDS ORDERED: LEVAQUIN 500 MG/D5W 500 MG/100 ML IVPB IV SCH (09:00)
[2019-11-03] MEDS ORDERED: POTASSIUM CHLORIDE 60 MEQ in NS 500 ML IV ONE (09:05)
[2019-11-03] MEDS: DIFLUCAN 100 MG/NS 100 MG/50 ML IVPB IV SCH (12:08)
[2019-11-03] MEDS: DULCOLAX PR SCH ×2 (14:37→21:36)
[2019-11-03] MEDS: AZACTAM 1 GM in NS 50 ML IV SCH ×2 (14:38→18:11)
[2019-11-03] MEDS: OXY IR PO PRN (21:16)
[2019-11-03] MEDS: NAMENDA PO SCH (21:16)
[2019-11-03] MEDS: COLACE PO SCH (21:36)
[2019-11-04] MEDS: AZACTAM 1 GM in NS 50 ML IV SCH ×3 (02:26→17:01)
--- NOTE | 2019-11-04 02:52 | PROGRESS NOTE ---
DATE: 11/03/2019 SUBJECTIVE: The patient is resting comfortably in bed. No acute events noted overnight. OBJECTIVE: Vital Signs: Temperature 97.6 degrees, blood pressure 146/65, heart rate 68, respirations 16, O2 saturation 95% on room air. General: This is a chronically ill appearing, elderly female lying in bed, in no acute distress. Heart: S1, S2 normal. Regular rate and rhythm. Lungs: Equal air entry bilaterally. Abdomen: Positive bowel sounds. Soft, nontender, nondistended. Extremities: No edema. No cyanosis. Neurologic: The patient is demented. LABS: Hemoglobin 8.9, hematocrit 27, platelets 307,000. Potassium 3.2, BUN 4, creatinine 0.4. Glucose 78. ASSESSMENT AND PLAN: 1. Right femoral neck fracture, status post closed reduction and percutaneous pinning of the fracture. Management as per the general surgeon. 2. Urinary tract infection secondary to Escherichia coli. Continue on Azactam. 3. Advanced Alzheimer's dementia. Continue on Aricept and Namenda. 4. Hypokalemia. Will replace the patient's potassium. 5. Hypothyroidism. Continue on Synthroid. 6. Constipation. Continue with laxative therapy. 7. Deep vein thrombosis prophylaxis. Continue on Lovenox. 8. Disposition. We will discharge the patient to inpatient rehab on Tuesday. cc: Ines South MD
[2019-11-04] MEDS: MORPHINE IV PRN (03:12)
[2019-11-04] MEDS: ZOFRAN IV PRN (03:12)
--- NOTE | 2019-11-04 04:00 | ORTHOPAEDICS PROGRESS NOTE ---
DATE: 11/03/2019 SUBJECTIVE: Ms. Santiago is lying in bed this morning. Overall feeling okay. Still gets some pain on that right hip. Physical therapy tried to get her up a little bit earlier, she was a little agitated so they are going to come back around again. OBJECTIVE: Right lower extremity exam, her dressing is clean, dry, and intact. She is able to move the toes up and down. She has good sensation to light touch to the toes. ASSESSMENT: Status post closed reduction and percutaneous pinning, femoral neck fracture. PLAN: Ms Santiago is weight bear as tolerated right lower extremity. Therapy will need to start working to get her up and moving. It is going to be an uphill moreira. I did discuss that with the family this morning, but we need to start getting her mobilized and orthopedics will continue to follow. cc: Taj Lopez MD
[2019-11-04] MEDS: LOVENOX SUBQ SCH (05:54)
[2019-11-04 07:22] LABS: HEMATOCRIT 28.6 % (37.0-47.0); HEMOGLOBIN 9.3 g/dL (12.0-16.0); MCH 31.2 PG (27-31); MCHC 32.5 g/dL (33-37); MPV 9.6 FL (7.4-10.4); RBC 2.98 XMIL (4.2-5.4); RDW 13.2 % (11.5-14.5); WBC 11.13 X1000 (4.8-10.8)
[2019-11-04 07:51] LABS: AGAP 15; BUN 5 mg/dL (8-22); CALCIUM 8.7 mg/dL (8.8-10.2); CHLORIDE 102 mmol/L (98-107); COSMO 274; CREATININE 0.4 mg/dL (0.5-0.9); ESTIMATED GFR > 60; GLUCOSE 77 mg/dL (70-104); POTASSIUM 3.8 mmol/L (3.5-5.1); SODIUM 139 mmol/L (136-145); TCO2 22 mmol/L (25-35)
[2019-11-04] MEDS ORDERED: MAGNESIUM SULFATE 2 GM/S.W.I. 2 GM/50 ML IVPB IV ONE (08:01)
[2019-11-04] MEDS: OXY IR PO PRN ×2 (09:34→21:03)
[2019-11-04] MEDS: DULCOLAX PR SCH ×3 (09:38→21:05)
[2019-11-04] MEDS: ARICEPT PO SCH (09:38)
[2019-11-04] MEDS: FERROUS SULFATE PO SCH (09:38)
[2019-11-04] MEDS: DEPAKOTE ER PO SCH ×2 (09:38→21:04)
[2019-11-04] MEDS: DIFLUCAN 100 MG/NS 100 MG/50 ML IVPB IV SCH (09:38)
[2019-11-04] MEDS: PERIDEX MT SCH ×2 (09:40→21:06)
[2019-11-04] MEDS: SYNTHROID PO SCH (09:42)
[2019-11-04] MEDS ORDERED: MEGACE LIQUID PO ONE (11:52)
[2019-11-04] MEDS ORDERED: SODIUM CHLORIDE 0.9% INJ PRN (11:53)
[2019-11-04] MEDS: MEGACE LIQUID PO SCH (21:04)
[2019-11-04] MEDS: COLACE PO SCH (21:04)
[2019-11-04] MEDS: NAMENDA PO SCH (21:06)
[2019-11-05] MEDS: AZACTAM 1 GM in NS 50 ML IV SCH ×3 (02:12→17:33)
[2019-11-05] MEDS: MORPHINE IV PRN ×2 (02:22→09:30)
--- NOTE | 2019-11-05 04:38 | PROGRESS NOTE ---
DATE: 11/04/2019 SUBJECTIVE: The patient is resting comfortably. She has been refusing to take any medications by mouth. OBJECTIVE: Vital Signs: Temperature 97 degrees, blood pressure 133/53, heart rate 70, respirations 20, O2 saturation is 98% on room air. General: This is a chronically ill-appearing elderly female lying in bed in no acute distress. Heart: S1, S2 normal. Regular rate and rhythm. Lungs: Clear to auscultation bilaterally. Abdomen: Positive bowel sounds. Soft, nontender, nondistended. Extremities: No edema. No cyanosis. Neurologic: The patient has severe dementia. LABORATORY DATA: White blood cell count 11, hemoglobin 9.3, hematocrit 28, platelets 330,000. Sodium 139, potassium 3.8, chloride 102, CO2 is 22, BUN 5, creatinine 0.4, glucose 77, magnesium 1.3. ASSESSMENT AND PLAN: 1. Right femoral neck fracture status post closed reduction and percutaneous pinning of the fracture. Management as per the general surgeon. Continue with physical therapy. 2. Urinary tract infection secondary to Escherichia coli. Continue on Azactam. 3. Advanced Alzheimer's dementia. Continue on Aricept and Namenda. 4. Hypomagnesemia. We will replace the patient's magnesium. 5. Hypothyroidism. Continue on Synthroid. 6. Constipation. Improved. Continue with laxative therapy. 7. Deep vein thrombosis prophylaxis. Continue on Lovenox. cc: Ines South MD
[2019-11-05] MEDS: SYNTHROID IV SCH (06:50)
[2019-11-05] MEDS: LOVENOX SUBQ SCH (06:51)
[2019-11-05 07:00] LABS: MAGNESIUM 1.8 mg/dL (1.5-2.7); PHOSPHORUS 2.6 mg/dL (2.7-4.5)
[2019-11-05 07:01] LABS: AGAP 15; BUN 9 mg/dL (8-22); CALCIUM 8.6 mg/dL (8.8-10.2); CHLORIDE 103 mmol/L (98-107); COSMO 277; CREATININE 0.4 mg/dL (0.5-0.9); ESTIMATED GFR > 60; GLUCOSE 72 mg/dL (70-104); POTASSIUM 3.8 mmol/L (3.5-5.1); SODIUM 140 mmol/L (136-145); TCO2 22 mmol/L (25-35)
[2019-11-05] MEDS: MEGACE LIQUID PO SCH ×2 (09:16→21:56)
[2019-11-05] MEDS: ARICEPT PO SCH (09:18)
[2019-11-05] MEDS: DIFLUCAN 100 MG/NS 100 MG/50 ML IVPB IV SCH (09:18)
--- NOTE | 2019-11-05 12:59 | Diag Imaging Result Doc PS360 ---
EXAM: CHEST-PORTABLE INDICATION: dyspnea TECHNIQUE: One view COMPARISON: 10/30/2019 FINDINGS: The lungs are grossly clear. There is no discrete pleural fluid collection or pneumothorax. The central vasculature appears mildly prominent suggesting possible mild pulmonary venous congestion. Cardiac silhouette is unremarkable. IMPRESSION: Slightly prominent central vasculature suggesting possible mild pulmonary venous congestion. Electronically signed by Jimy Ocampo 11/05/2019 12:57 PM
[2019-11-05] MEDS ORDERED: LASIX IV ONE (13:17)
[2019-11-05] MEDS: FERROUS SULFATE PO SCH (13:43)
[2019-11-05] MEDS: PEPCID IV SCH (14:14)
[2019-11-05] MEDS: PERIDEX MT SCH (14:18)
--- NOTE | 2019-11-05 14:50 | GASTROENTEROLOGY CONSULTATION ---
DATE: 11/05/2019 REASON FOR CONSULT: Odynophagia and dysphagia. HISTORY OF PRESENT ILLNESS: Ms Santiago is an 84-year-old female. History is gathered from her daughter. The patient is alert and oriented x1. She is a resident of [facility] in [place]. The patient has a history of Alzheimer's dementia, hypothyroidism, and seizure disease. The patient also has a pacemaker which was put in July with a diagnosis of carotid sinus hypersensitivity, which was done by Dr. Mccallum in [place]. The reason for her pacemaker was that whenever the patient would turn her head to the right side she felt a pinch in her nerve and she used to pass out. The patient was also bradycardic. Her symptoms of dysphagia started when she was admitted to the [facility] at [facility] in [place] in August. The daughter mentioned that she was not able to drink or eat anything and they started giving her thickened liquids which the patient was not able to tolerate, and she also mentioned that her medicines got messed up. The patient started becoming very sleepy. The patient had this carotid sinus hypersensitivity going on since May of last year and that is when she used to get seizures and her dementia got more worse. The patient has been in the hospital since 10/30 and GI has been consulted for her dysphagia. Head and cervical findings on CT on 10/30/2019 showed no visible acute intracranial abnormality. No evidence of intracranial injury. CT of the cervical spine showed substantial multilevel degenerative disk disease. No evidence of fracture or subluxation. The patient's femur x- ray showed mildly impacted fracture of the right femoral neck. Her pelvis CT showed fracture of the right femoral neck with mild impaction. Hip and pelvis x-ray showed no evidence of pelvis fracture. The mildly impacted fracture of the right femoral neck was again noted. The patient's chest x-ray today showed a slightly prominent central vasculature suggesting possible mild pulmonary venous congestion. PAST MEDICAL HISTORY: Hernia, seizure, hypothyroidism, Alzheimer's dementia, and some behavioral disturbances. FAMILY HISTORY: No significant GI malignancies. SURGICAL HISTORY: Patient had a pacemaker put in July. ALLERGIES: The patient is allergic to albuterol, diazepam, Valium, flu vaccine, penicillin, mayonnaise, mold, mildew, and Oseltamivir. HOME MEDICATIONS: Buspirone HCL 5 mg 1 tablet, cranberry 400 mg two capsules daily, Depakote 500 mg p.o. twice a day, Aricept 10 mg p.o. at bedtime, acidophilus capsules one tablet daily, levothyroxine sodium 25 mcg p.o. daily, Namenda 5 mg one tablet at bedtime, Pyridium 200 mg one tablet twice a day, MiraLAX 17 grams p.o. as needed, Aspercreme 85 grams topical three times a day, Tylenol 325, 650 mg p.o. every four hours as needed, Briviact 50 mg twice a day, magnesium hydroxide 200 mg every four hours as needed. SOCIAL HISTORY: She is a , has a daughter and lives at [facility] in [place] REVIEW OF SYSTEMS: As per HPI, otherwise 12 point review of system is negative. PHYSICAL EXAMINATION: Vital Signs: Temperature 98.4 degrees, pulse 79, respirations 16, blood pressure 126/59, oxygen saturation 93%, she is on 2 L nasal cannula. Patient's weight is 110 pounds, BMI is 15.3 kg/m2. General: She is alert, oriented x1. Unable to gather history. HEENT: Pale conjunctivae. No icterus. PERRL. Neck: Supple. Lungs: Clear to auscultation in the anterior marrero. Cardiovascular: Regular rate and rhythm. Abdomen: Soft, nontender, nondistended. Active bowel sounds heard in all four quadrants. Extremities: No clubbing. No cyanosis. Edema noted in the foot bilaterally. Pedal pulses 1+ present bilaterally. Neurologic: Alert and oriented x1. LABORATORY DATA: WBCs are 11.13, RBC 2.98, hemoglobin 9.3, hematocrit 28.6, platelet count 230,000. Sodium 140, potassium 3.8, chloride 103, carbon dioxide 22, anion gap 15, BUN 9, creatinine 0.4, glucose 72, calcium 8.6. The patient's immunoglobulins, quantitative IgA, IgG, and IgM serum are all within the normal limits. IMPRESSION AND PLAN: Dysphagia Right femoral neck fracture UTI Carotid Sinus Hypersensitivity s/p Pacemaker Anemia Dementia Constipation Thrush PLAN: Ms. Santiago is a 84 year old female with the history of dementia and carotid sinus hypersensitivity s/p pacemaker placement. GI has been consulted for her dysphagia. The patient is currently on GI prophylaxis Pepcid 20 mg IV twice a day. She is on a bowel regimen with MiraLAX 17 grams and Dulcolax 10 mg suppository for her constipation. The patient is receiving Diflucan 100 mg for her thrush in the mouth. We will plan to do an EGD if patient continues to be symptomatic. Continue on Aspiration precautions. We will continue to monitor the patient and follow the plan of care per primary care provider. This plan was discussed with Dr. Bruno. Thank you for your consult. Please call us for any further questions or concerns. Dictated by FERNANDO Gibson for Chau Bruno MD cc: Chau Bruno MD I have seen and examined the patient myself and I agree with the above plan of care. I have discussed the above with the patient's nurse and all questions were answered. Please call us with any further questions. [facility]
[2019-11-05] MEDS: DEPACON 500 MG in NS 50 ML IV SCH (17:32)
[2019-11-05] MEDS: DULCOLAX PR SCH (18:14)
--- NOTE | 2019-11-05 20:22 | PROGRESS NOTE ---
DATE: 11/05/2019 SUBJECTIVE: The patient is resting comfortably. She has been complaining of pain when she tries to swallow. The patient has advanced dementia and is not able to really communicate. OBJECTIVE: Vital Signs: Temperature 97.4 degrees, blood pressure 147/57, heart rate 78, respirations 16, O2 saturation 96% on 2 L nasal cannula. General: This is a chronically ill- appearing elderly female lying in bed in no acute distress. Heart: S1, S2 normal. Regular rate and rhythm. Lungs: Coarse breath sounds. Abdomen: Positive bowel sounds. Soft, nontender, nondistended. Extremities: Trace pedal edema. Neurologic: The patient is the patient has advanced dementia. She does not follow commands. She is not oriented to person, place or time. LABS: Sodium 140, potassium 3.8, chloride 103, CO2 22, BUN 9, creatinine 0.4, glucose 72, magnesium 1.8, phosphorus 2.6. Chest x-ray shows mild pulmonary edema. ASSESSMENT AND PLAN: 1. Mild volume overload with pulmonary edema. We will give the patient a dose of diuretic therapy today. We will repeat a chest x-ray tomorrow. The patient is currently on supplemental oxygen. 2. Odynophagia. GI has been consulted. 3. Right femoral neck fracture status post closed reduction and percutaneous pinning of the fracture. Stable. Continue with physical therapy. 4. Urinary tract infection secondary to Escherichia coli. The patient is currently on day 3 of Azactam therapy. 5. Advanced Alzheimer's dementia. Continue on Aricept and Namenda. 6. Hypothyroidism. Continue on Synthroid. 7. Constipation. Continue on laxative therapy. 8. Seizure disorder. The patient is on IV depacon 9. Deep vein thrombosis prophylaxis. Continue on Lovenox. 10. Disposition. The patient is a resident at [facility]. She will return there once she is medically stable. cc: Ines South MD [facility]
[2019-11-05] MEDS: OXY IR PO PRN (21:55)
[2019-11-05] MEDS: NAMENDA PO SCH (21:55)
[2019-11-05] MEDS: MIRALAX PO SCH (21:58)
[2019-11-06] MEDS: DULCOLAX PR SCH ×2 (00:09→08:24)
[2019-11-06] MEDS: COLACE PO SCH (00:09)
[2019-11-06] MEDS: PERIDEX MT SCH ×2 (00:10→08:23)
[2019-11-06] MEDS: PEPCID IV SCH ×3 (00:58→23:30)
[2019-11-06] MEDS: SODIUM CHLORIDE 0.9% INJ SCH ×2 (00:58→10:47)
[2019-11-06] MEDS: AZACTAM 1 GM in NS 50 ML IV SCH ×3 (00:59→17:26)
[2019-11-06] MEDS: MORPHINE IV PRN ×3 (00:59→12:26)
[2019-11-06] MEDS: SYNTHROID IV SCH ×2 (05:45→08:01)
[2019-11-06] MEDS: DEPACON 500 MG in NS 50 ML IV SCH (05:46)
[2019-11-06] MEDS: LOVENOX SUBQ SCH ×2 (05:47→17:22)
[2019-11-06 06:54] LABS: BASO# 0.09 X1000 (0.0-0.2); BASO% 0.9 % (0.0-0.8); EOS# 0.04 X1000 (0.0-0.7); EOS% 0.4 % (0.0-10.0); HEMATOCRIT 29.4 % (37.0-47.0); HEMOGLOBIN 9.3 g/dL (12.0-16.0); IMM GRAN# 0.15 X1000 (0.0-0.04); IMM GRAN% 1.5 % (0.0-0.5); LYMPH# 1.29 X1000 (1.2-3.4); LYMPH% 12.7 % (20.5-51.1); MCH 30.1 PG (27-31); MCHC 31.6 g/dL (33-37); MCV 95.1 FL (81-99); MONO# 0.99 X1000 (0.11-0.59); MONO% 9.8 % (1.7-9.3); MPV 9.6 FL (7.4-10.4); NEUT# 7.57 X1000 (1.4-6.5); NEUT% 74.7 % (42.2-75.2); PLT 360 X1000 (130-400); RBC 3.09 XMIL (4.2-5.4); RDW 13.2 % (11.5-14.5); WBC 10.13 X1000 (4.8-10.8)
--- NOTE | 2019-11-06 07:07 | Diag Imaging Result Doc PS360 ---
EXAM: CHEST-PORTABLE 11/06/2019 HISTORY: dyspnea TECHNIQUE: AP portable upright at 0537 COMMENT: The inspiration is suboptimal. There is some questionable perihilar opacity particularly in the right upper and lower lobes. This was also present on 11/05/2019. Compared to 10/30/2019, which is the earliest previous study available for comparison, there is slightly more opacification in the left lower lobe. IMPRESSION: Mild bronchopneumonia. Electronically signed by Boubacar Maher 11/06/2019 7:05 AM
[2019-11-06 07:26] LABS: AGAP 15; ALBUMIN 2.7 g/dL (3.5-5.0); BUN 13 mg/dL (8-22); CHLORIDE 100 mmol/L (98-107); COSMO 277; CREATININE 0.4 mg/dL (0.5-0.9); ESTIMATED GFR > 60; GLUCOSE 79 mg/dL (70-104); PHOSPHORUS 3.2 mg/dL (2.7-4.5); POTASSIUM 3.3 mmol/L (3.5-5.1); SODIUM 139 mmol/L (136-145); TCO2 24 mmol/L (25-35)
[2019-11-06] MEDS: MEGACE LIQUID PO SCH (08:21)
[2019-11-06] MEDS: ARICEPT PO SCH (08:23)
[2019-11-06] MEDS: MIRALAX PO SCH (08:23)
[2019-11-06] MEDS: FERROUS SULFATE PO SCH (08:24)
[2019-11-06] MEDS: DIFLUCAN 100 MG/NS 100 MG/50 ML IVPB IV SCH (09:25)
--- NOTE | 2019-11-06 11:47 | GASTROENTEROLOGY PROGRESS NOTE ---
DATE: 11/06/2019 SUBJECTIVE: Ms. Santiago is an 84-year-old female. She is resting in bed. Family is at the bedside. The patient was sleeping and was drowsy, unable to assess her. OBJECTIVE: Vital Signs: Temperature 99.4 degrees, pulse is 68, respirations 13, blood pressure 160/74, oxygen saturation 95% on room air. The patient's weight is 110 pounds, BMI is 15.3 kg/m2. General: Unable to assess patient. HEENT: Pale conjunctivae. No icterus. PERRL. Neck: Supple. Lungs: Clear to auscultation in the anterior marrero. Has a pacemaker on the left side. Cardiovascular: Regular rate and rhythm. Abdomen: Soft, nontender, nondistended. Active bowel sounds heard in all 4 quadrants. Extremities: No clubbing, no cyanosis. Edema noted in both the feet. Pedal pulses 1+ present. Neurologic: Unable to assess patient. Labs: WBCs are 10.13, RBCs 3.09, hemoglobin 9.3, hematocrit 29.4, platelet count is 360,000. Sodium 139, potassium 3.3, chloride 100, carbon dioxide 24, anion gap 15, BUN 13, creatinine 0.4, glucose 79, calcium 9.0, phosphorus 3.2, magnesium 1.6, albumin is 2.7. Chest x-ray today showed mild bronchopneumonia. IMPRESSION: 1. Dysphagia. 2. Right femoral neck fracture. 3. Urinary tract infection. 4. Carotid sinus hypersensitivity, status post pacemaker. 5. Anemia. 6. Dementia. 7. Constipation. 8. Thrush. PLAN: Ms. Santiago is an 84-year-old, female with a history of dementia and carotid sinus hypersensitivity, status post pacemaker. GI is following her for her dysphagia. We have put a speech evaluation for the patient. The family mentioned that they are okay for the patient to be comfortable and if there is no need to do a procedure, the daughter was okay with that. We will continue to monitor the patient. The patient is currently receiving antibiotic for her UTI and she is also receiving Diflucan for her thrush. For her bowel regimen, she is on milk of magnesia, Dulcolax suppository and Miralax. We will continue to monitor the patient and follow the plan of care per PCP. This plan was discussed with Dr. Momin. Please call us for any further questions or concerns. Dictated by FERNANDO Gibson for Angel Luis Momin MD Physician Attestation I have seen and examined the patient. I have discussed and reviewed the note by Tanja KING and agree with findings and plan as documented. Patient has oropharyngeal dysphagia. Recommend speech evaluation. Family is adamant about not having PEG tube placement. Continue supportive care with diflucan for thrush +/- leandro esophagitis. Stop pepcid and give protonix IV once daily. WIll follow with you. Please call with questions MTDD
--- NOTE | 2019-11-06 13:36 | EKG Report ---
Test Performed on : 11/06/2019 1:19:40 PM Test Reason : increase in heart rate Blood Pressure : / mmHG Vent. Rate : 113 BPM Atrial Rate : 159 BPM P-R Int : 000 ms QRS Dur : 080 ms QT Int : 338 ms P-R-T Axes : 000 022 124 degrees QTc Int : 463 ms Atrial fibrillation. with rapid ventricular response. ST & T wave abnormality, consider inferior ischemia Abnormal ECG When compared with ECG of 30-OCT-2019 20:05, (Unconfirmed) No significant change was found Confirmed by Marlene SANTOS, Marshall ([id number]) on 11/07/2019 8:08:47 AM
[2019-11-06] MEDS ORDERED: LOPRESSOR IV ONE (13:56)
[2019-11-06] MEDS ORDERED: DEPACON 500 MG in NS 50 ML IV SCH (13:56)
[2019-11-06] MEDS: MAGNESIUM SULFATE 2 GM/S.W.I. 2 GM/50 ML IVPB IV SCH ×2 (14:13→17:22)
[2019-11-06] MEDS: POTASSIUM CHLORIDE 20 MEQ/SWI 20 MEQ/100 ML IVPB IV SCH ×2 (14:15→16:28)
[2019-11-06] MEDS: LOPRESSOR PO SCH ×2 (14:18→23:29)
[2019-11-06] MEDS: FLAGYL 500 MG/NS 500 MG/100 ML IVPB IV SCH ×2 (16:27→23:28)
[2019-11-06] MEDS ORDERED: DEPACON 250 MG in NS 50 ML IV ONE (16:44)
[2019-11-06] MEDS ORDERED: BRIVIACT IV SCH (16:54)
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
[2019-11-06] MEDS: NAMENDA PO SCH (23:29)
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
[2019-11-07] MEDS: AZACTAM 1 GM in NS 50 ML IV SCH ×3 (00:44→17:15)
[2019-11-07] MEDS: DULCOLAX PR SCH ×2 (00:59→10:14)
[2019-11-07] MEDS: PERIDEX MT SCH ×2 (01:00→14:14)
[2019-11-07] MEDS: COLACE PO SCH (01:00)
[2019-11-07] MEDS: MIRALAX PO SCH ×3 (01:00→23:34)
[2019-11-07] MEDS: PROTONIX IV SCH (02:00)
[2019-11-07] MEDS: SODIUM CHLORIDE 0.9% INJ SCH (02:00)
[2019-11-07] MEDS: MORPHINE IV PRN (03:08)
--- NOTE | 2019-11-07 04:02 | ORTHOPAEDICS PROGRESS NOTE ---
DATE: 11/06/2019 SUBJECTIVE: The patient has had an eventful day today. She went into atrial fibrillation with rapid ventricular response. Cardiology was consulted for this and she was placed on medication. Physical Therapy worked with her today on range of motion exercises in the bed, which she tolerated well. She sat up on the side of the bed; however, did not stand. GI evaluated her for possible EGD. Family does not want to proceed with that at this time. The plan is for them to do a swallow study tomorrow. Hematocrit is 29 and stable. OBJECTIVE: Extremity examination: The right lower extremity shows surgical dressing to be clean, dry, intact. No erythema, fluctuance or drainage from the surgical incision. Thigh and calf are soft and compressible. The foot is grossly up and downgoing. Dorsalis pedis pulse palpable. ASSESSMENT: An 84-year-old female status post closed reduction with percutaneous pinning of right femoral neck fracture. PLAN: 1. The patient will be weightbearing as tolerated, right lower extremity. Physical Therapy to continue to work on range of motion and mobilization exercises. 2. Appreciate hospitalist recommendations. 3. Continue aztreonam for UTI per primary recommendations. 4. Lovenox for DVT prophylaxis. 5. Disposition per primary team. Will follow the patient up in clinic 2 weeks after discharge for wound check and x-rays.
[2019-11-07] MEDS: DEPACON IV SCH ×2 (04:39→16:15)
[2019-11-07] MEDS: NS IV SCH ×2 (04:39→16:15)
[2019-11-07] MEDS: LOVENOX SUBQ SCH ×2 (05:52→18:00)
[2019-11-07] MEDS: SYNTHROID IV SCH ×2 (05:53→08:40)
[2019-11-07] MEDS: FLAGYL 500 MG/NS 500 MG/100 ML IVPB IV SCH ×3 (05:53→18:15)
[2019-11-07] MEDS ORDERED: BRIVIACT IV SCH (06:00)
[2019-11-07 06:49] LABS: BASO# 0.06 X1000 (0.0-0.2); BASO% 0.3 % (0.0-0.8); HEMATOCRIT 30.5 % (37.0-47.0); HEMOGLOBIN 9.7 g/dL (12.0-16.0); IMM GRAN% 1.1 % (0.0-0.5); LYMPH# 0.66 X1000 (1.2-3.4); LYMPH% 3.7 % (20.5-51.1); MCH 30.4 PG (27-31); MCHC 31.8 g/dL (33-37); MCV 95.6 FL (81-99); MONO% 11.8 % (1.7-9.3); MPV 9.6 FL (7.4-10.4); NEUT# 14.77 X1000 (1.4-6.5); NEUT% 83.1 % (42.2-75.2); PLT 378 X1000 (130-400); RBC 3.19 XMIL (4.2-5.4); RDW 13.5 % (11.5-14.5); WBC 17.79 X1000 (4.8-10.8)
--- NOTE | 2019-11-07 07:38 | EKG Report ---
Test Performed on : 11/07/2019 07:03:42 AM Test Reason : FOllow up heart rhythm Blood Pressure : / mmHG Vent. Rate : 088 BPM Atrial Rate : 088 BPM P-R Int : 112 ms QRS Dur : 082 ms QT Int : 364 ms P-R-T Axes : 078 048 064 degrees QTc Int : 440 ms Sinus rhythm. with premature atrial complexes. Nonspecific T wave abnormality Abnormal ECG When compared with ECG of 06-NOV-2019 13:19, (Unconfirmed) Sinus rhythm. has replaced Atrial fibrillation. T wave inversion no longer evident in Inferior leads Confirmed by Marlene SANTOS, Marshall ([id number]) on 11/07/2019 8:13:42 AM
[2019-11-07 09:08] LABS: AGAP 15; BUN 16 mg/dL (8-22); CALCIUM 9.2 mg/dL (8.8-10.2); CHLORIDE 105 mmol/L (98-107); COSMO 286; CREATININE 0.4 mg/dL (0.5-0.9); ESTIMATED GFR > 60; GLUCOSE 104 mg/dL (70-104); POTASSIUM 3.8 mmol/L (3.5-5.1); SODIUM 143 mmol/L (136-145); TCO2 23 mmol/L (25-35)
[2019-11-07] MEDS: ARICEPT PO SCH (10:09)
[2019-11-07] MEDS: FERROUS SULFATE PO SCH (10:09)
--- NOTE | 2019-11-07 13:57 | GASTROENTEROLOGY PROGRESS NOTE ---
DATE: 11/07/2019 SUBJECTIVE: Ms. Santiago is an 84-year-old female. She was resting in bed, sleepy and drowsy.. Family at the bedside. Unable to assess patient. OBJECTIVE: Vital Signs: Temperature 98 degrees, pulse is 64, respirations 17, blood pressure 129/45, oxygen saturation is 95%. The patient is on 2 L nasal cannula. Her weight is 110 pounds, BMI is 15.3 mg/m2. General: The patient is drowsy, unable to assess. HEENT: Pale conjunctivae. No icterus. PERRL. Neck: Supple. Lungs: Clear to auscultate in the anterior marrero. Chest: Has a pacemaker on the left side. Cardiovascular: Regular rate and rhythm. Abdomen: Soft, nontender, nondistended. Active bowel sounds heard in all 4 quadrants. Extremities: No clubbing or cyanosis. Edema noted in the lower extremities. Pedal pulses 1+ present. Neurologic: Unable to assess patient. LABORATORY DATA: WBC of 17.7, RBC 3.1, hemoglobin 9.7, hematocrit is 30.5, platelet count is 378,000. Sodium 143, potassium 3.8, chloride 105, carbon dioxide 23, anion gap 15, BUN 16, creatinine 0.4, glucose 104, calcium 8.2. IMAGING: The patient had a chest x-ray done yesterday and it showed that she has some mild bronchopneumonia. IMPRESSION AND PLAN: 1. Dysphagia. 2. Right femoral neck hip fracture. 3. Urinary tract infection. 5. Anemia. 6. Dementia. 7. Constipation. 8. Thrush PLAN: Ms. Santiago is an 84-year-old female with a history of dementia, carotid sinus hypersensitivity status post pacemaker. GI is following her for her dysphagia. The speech therapist tried to do a speech evaluation today, but they were not unable to do it because the patient was drowsy. The family is refusing to do any procedures or PEG tube placement. Family wants the patient to be more comfortable, so we will continue to provide supportive care. The patient is currently receiving antibiotics for her UTI. She is on GI prophylaxis Protonix 40 mg GI prophylaxis IV daily. We will continue to monitor the patient and follow the plan of care per PCP. This plan was discussed with Dr. Momin. Please call us for any further questions. Dictated by FERNANDO Gibson for Angel Luis Momin MD Physician Attestation I have seen and examined the patient. I have discussed and reviewed the note by Tanja KING and agree with findings and plan as documented. POWER
[2019-11-07] MEDS: LOPRESSOR PO SCH (14:14)
--- NOTE | 2019-11-07 15:06 | PROGRESS NOTE ---
DATE: 11/07/2019 SUBJECTIVE: Dr. Urena saw Ms. Santiago for initial Neurology evaluation. She has baseline dementia and presented with hip fracture. She has atrial fibrillation. There is reported to be history of seizures. She has resumed Briviact and increased valproate dose this admission. I do not see clinically recognized seizure recorded in the last 24 hours. DIAGNOSTIC DATA: Noncontrast CT of the head 10/30/2019 was unremarkable. Labs show initial mild hypocalcemia which has corrected, mild hypomagnesemia which has corrected, nothing else remarkable on chemistry profile. There is nothing in the lab work that would explain encephalopathy or seizure. MEDICATIONS: Current medications include 1. Briviact 50 mg b.i.d. 2. Valproic acid 750 mg IV q.12 hours. 3. Ziprasidone 10 mg p.r.n. with no dose recorded. 4. Donepezil 10 mg daily. Dose held today because she is NPO. 5. Memantine 5 mg daily. 6. Oxycodone 5 mg averaging 1 to 2 doses daily. I do not see anything else in the medication record that would likely have significant [employer] effect. OBJECTIVE: On exam, she is asleep. With moderate stimulation, she appeared to be awake. She did not communicate with me or follow commands. There is no obvious focal feature on limited bedside testing. IMPRESSION: Global encephalopathy, baseline cognitive impairment, remote history of seizure. She appears to be clinically stable with current antiseizure medication regimen. I do not see anything obvious in the chemistry or medication records to explain new encephalopathy. I will order EEG to make sure there is not subclinical seizure. Thanks for asking Neurology to see Ms. Santiago. cc: Spring Tarango III, MD [facility]
[2019-11-07] MEDS: BRIVIACT IV SCH (18:00)
--- NOTE | 2019-11-07 18:01 | PROGRESS NOTE ---
DATE: 11/07/2019 ADDENDUM: EEG raises concern for seizure. I have empirically increased her Briviact dose from 50 mg to 100 mg IV q.12 hours. Her renal function is excellent and we should not see significant toxicity at this dose. Further plans will depend on her clinical course. We might need to repeat EEG later. cc: Spring Tarango III, MD
[2019-11-07] MEDS ORDERED: MORPHINE IV PRN (20:07)
[2019-11-07] MEDS ORDERED: LOPRESSOR IV SCH (20:15)
[2019-11-07] MEDS ORDERED: LOPRESSOR IV PRN (20:21)
--- NOTE | 2019-11-07 21:00 | PROGRESS NOTE ---
DATE: 11/07/2019 INTERVAL HISTORY: No acute events overnight. Neurology team had seen the patient. An EEG was performed, which was suspicious of seizure activity and her Briviact dose was increased. The patient's daughter is at bedside. I was informed that the patient has not been awake since 2 a.m. in the morning time. She has not been interactive at all. The daughter reiterates that she would want only comfort measures only. I brought about the idea of hospice and she agrees, so the hospice nurse would be consulted. CURRENT VITALS: Temperature 98.4 degrees, pulse 67, respiratory 24, blood pressure 131/47. She is saturating 95% on 2 L nasal cannula. PHYSICAL EXAMINATION: General: She is not in any acute distress. Mouth: Oral cavity is moist. Lungs: Air entry bilaterally equal. No wheeze, rhonchi, or crackles. However, examination is limited. Cardiovascular: S1, S2 normal. Irregularly irregular. No murmur, rub, or gallop. Abdomen: Soft scaphoid. Extremities: She does not have any lower extremity edema. LABS: Suggestive of worsening leukocytosis. Normal electrolytes. No new microbiological data. No new imaging. ASSESSMENT AND PLAN: 1. Acute encephalopathy. 2. Atrial fibrillation with rapid ventricular rate. 3. Suspected seizure with prior history of seizure. 4. Urinary tract infection with Escherichia coli and bilateral lower lobe pneumonia. 5. Odynophagia. 6. Fall leading to right femoral neck fracture status post closed reduction and percutaneous pinning of the fracture. PLAN: The patient's daughter mentions that she would not want any heroic measures and would like to make the patient comfortable. I discussed with her that her current altered mental status could be due to multiple reasons including pneumonia, urinary tract infection, ongoing seizure activity. The patient is 84 and has poor nutritional status and has dementia as well. Considering that, her prognosis was guarded and after understanding the daughter, the daughter decided to pursue hospice care. So at the moment, I will treat the patient with IV antibiotics. We will give her IV metoprolol and I will consult hospice team. I will also keep her on IV morphine as needed for pain medication. cc: Joseph Jain MD
[2019-11-08] MEDS: AZACTAM 1 GM in NS 50 ML IV SCH ×3 (01:18→17:15)
[2019-11-08] MEDS: SODIUM CHLORIDE 0.9% INJ SCH (01:19)
[2019-11-08] MEDS: PROTONIX IV SCH (01:19)
[2019-11-08] MEDS: FLAGYL 500 MG/NS 500 MG/100 ML IVPB IV SCH ×3 (01:55→18:05)
[2019-11-08] MEDS: NS IV SCH ×2 (04:25→16:12)
[2019-11-08] MEDS: DEPACON IV SCH ×2 (04:25→16:12)
[2019-11-08] MEDS: BRIVIACT IV SCH ×2 (05:52→18:15)
[2019-11-08] MEDS: SYNTHROID IV SCH ×2 (05:53→07:18)
[2019-11-08] MEDS: MIRALAX PO SCH (08:39)
[2019-11-08] MEDS: OFIRMEV 1000 MG/ISOTONIC SOLN 1,000 MG/100 ML BOTTLE IV PRN ×2 (09:41→23:32)
--- NOTE | 2019-11-08 11:58 | GASTROENTEROLOGY PROGRESS NOTE ---
DATE: 11/08/2019 SUBJECTIVE: Ms. Santiago is an 84-year-old female, resting in bed. Family at the bedside. The patient has been sleepy and drowsy and unable to assess her. OBJECTIVE: Vital Signs: Temperature 98.4, pulse 70, respirations 22, blood pressure 129/52, oxygen saturation 96% on 2 L nasal cannula. The patient's weight is 110 pounds, BMI is 15.3 kg/m2.General: The patient is drowsy, sleepy, unable to assist. HEENT: Pale conjunctivae. No icterus. PERRL. Neck: Supple. Lungs: Diminished breath sounds heard in the anterior marrero. Cardiovascular: Regular rate and rhythm. The patient is on the pacemaker on the left side. Abdomen: Soft, nontender, nondistended. Active bowel sounds heard in all 4 quadrants. Extremities: No clubbing. No cyanosis. Generalized edema in the lower extremities. Pedal pulses 1+ present bilaterally. Neurologic: Unable to assess patient. LABORATORY: Hematology is from 11/07. WBCs 17.79, RBC 3.19, hemoglobin 9.7, hematocrit is 30.5, platelet count is 378,000. Sodium 143, potassium 3.8, chloride 105, carbon dioxide 23, anion gap 15, BUN 16, creatinine 0.4, glucose 104, calcium 9.2. IMPRESSION: Dysphagia Right femoral neck fracture UTI CSH s/p Pacemaker Anemia Dementia Constipation Thrush PLAN: Ms. Santiago is an 84-year-old female with a history of dementia and carotid sinus hypersensitivity, s/p pacemaker. GI has been following her for dysphagia. Speech therapist tried to do an evaluation yesterday and they were unable to do it because patient was drowsy. Family has refused to do any procedures including putting a PEG tube. They want the patient to be comfortable and they want to go with the hospice care. We will continue to provide supportive care to the patient and follow the plan of care per PCP. This plan was discussed with Dr. Bruno. Please call us for any further questions or concerns. Dictated by FERNANDO Gibson for Chau Bruno MD cc: Chau Bruno MD I have seen and examined the patient myself and I agree with the above plan of care. I have discussed the above with the patient's family at bedside and all questions were answered. Please call us with any further questions. MTDD
--- NOTE | 2019-11-08 13:02 | PROGRESS NOTE ---
DATE: 11/08/2019 Ms. Santiago looks about the same clinically. I did not examine her vigorously today. I discussed the EEG findings frankly with daughter. We discussed typical Briviact dose ranges. Daughter is very comfortable with decision for conservative management and hospice involvement. I agree with her plans. I will sign off and be glad to see Ms. Santiago again if needed. Thanks for asking Neurology to see Ms. Santiago. cc: Spring Tarango III, MD [facility]
--- NOTE | 2019-11-08 15:59 | PROGRESS NOTE ---
DATE: 11/08/2019 INTERVAL HISTORY: Overnight no acute events. The patient's daughter is at bedside who tells me that the patient woke up and ate a little bit of Jell-O and was able to sip water. She once also mentioned to her daughter that she felt as if she was not getting better. She was more interactive in the morning time, but now asleep. Hospice team is currently evaluating Ms. Santiago. She does not appear in acute distress. VITAL SIGNS: Temperature 99.2 degrees, pulse 68, respiratory rate 14, blood pressure 130/50, saturating 96% on 2 L nasal cannula. PHYSICAL EXAMINATION: General: Cachectic. Not in acute distress. She is not following commands. Lungs: Air entry bilaterally equal. No wheeze or rhonchi. Cardiovascular: S1, S2 normal. Not tachycardic. Appears irregularly irregular at bedside monitor. No murmur or gallop. Abdomen: Scaphoid, nontender. No lower extremity edema. Extremities: She does wince when I lift her right lower extremity. Right lateral thigh wound does not appear to be soaked with blood or pus. LABORATORY DATA: No labs were drawn. ASSESSMENT AND PLAN: 1. Acute encephalopathy. 2. Dementia. 3. Atrial fibrillation with rapid ventricular rate. 4. Suspected seizure activity. 5. Urinary tract infection with Escherichia coli and bilateral lower lobe pneumonia. 6. Odynophagia. 7. Fall leading to right femoral neck fracture status post closed reduction and percutaneous pinning. PLAN: At this point, the patient's code status is DNR level 1 and patient's daughter wanted to pursue comfort measures only, respecting her mother wishes, so I will continue her on intravenous antibiotic as per daughter's request, intravenous antiseizure medications, intravenous pain medications to address her pain and to give her medicines to avoid constipation. Hospice team is currently evaluating. I will await their recommendations. Plan of care discussed with daughter. She is in agreement. cc: Joseph Jain MD
[2019-11-09] MEDS: AZACTAM 1 GM in NS 50 ML IV SCH ×2 (01:46→09:58)
[2019-11-09] MEDS: FLAGYL 500 MG/NS 500 MG/100 ML IVPB IV SCH ×2 (03:13→10:49)
[2019-11-09] MEDS: DEPACON IV SCH (04:58)
[2019-11-09] MEDS: NS IV SCH (04:58)
[2019-11-09] MEDS: OFIRMEV 1000 MG/ISOTONIC SOLN 1,000 MG/100 ML BOTTLE IV PRN (04:58)
[2019-11-09] MEDS: BRIVIACT IV SCH (06:44)
--- NOTE | 2019-11-09 08:37 | ORTHOPAEDICS PROGRESS NOTE ---
DATE: 11/09/2019 SUBJECTIVE: No acute events overnight. The patient has been evaluated by Neurology for EEG showing seizure activity. She has been placed on IV antiepileptic medications. The patient's daughter has elected to proceed with placing her on Hospice care to keep her comfortable and with no heroic measures. Hospice nurse is planning on meeting with the patient today to arrange placement. OBJECTIVE: Afebrile, vital signs stable. Hematocrit is 31 from 11/07/2019. Extremities: Examination of right lower extremity shows surgical incision to be clean, dry and intact with vinicio in place. No erythema, fluctuance, induration or sign of infection. Thigh and calf are soft and compressible. She has no facial grimace or apparent pain with log roll of the hip. ASSESSMENT: An 84-year-old female with severe dementia, status post same level fall with right femoral neck fracture. She underwent CRPP of her right femoral neck on 11/01/2019. PLAN: 1. The patient can be weightbearing as tolerated to right lower extremity. Therapy to continue to work with her. 2. The patient's daughter has elected to proceed with Hospice care, which I agree is a reasonable option given her overall medical condition. She appears to be comfortable at this time. 3. Ice to right lower extremity as needed for pain. 4. Disposition per primary team. Her vinicio can be removed by the Hospice nurse at home in about 1 week. If the patient makes a drastic turnaround, I will plan on seeing her in clinic in 7 to 10 days for x-rays and wound check.
--- NOTE | 2019-11-09 10:56 | GASTROENTEROLOGY PROGRESS NOTE ---
DATE: 11/09/2019 SUBJECTIVE: Ms. Santiago is an 84-year-old female resting in bed. Family at the bedside. Unable to assess patient because the patient was sleepy and drowsy. OBJECTIVE: Vital Signs: Temperature 98.6 degrees, pulse is 71, respirations 18, blood pressure 131/59, oxygen saturation 97% on 3 L nasal cannula. The patient's weight is 110 pounds, BMI is 15.3 kg/m2. General: Drowsy, sleepy, unable to assess. HEENT: Pale conjunctivae. No icterus. PERRL. Neck: Supple. Respiratory: Diminished breath sounds heard in the anterior marrero. Cardiovascular: Regular rate and rhythm. The patient has a pacemaker on the left side of the chest. Abdomen: Soft, nontender, nondistended. Active bowel sounds heard in all 4 quadrants. Extremities: No clubbing, no cyanosis. Generalized edema in the lower extremities. Pedal pulses 1+ present bilaterally. Neurologic: Unable to assess patient. LABORATORY: The patient's hematology is from 11/07. WBC is 17.79, RBC is 3.19, hemoglobin is 9.7, hematocrit is 30.5, platelet count is 378,000. Chemistries are from 11/07: Sodium is 143, potassium is 3.8, chloride is 105, carbon dioxide is 23, anion gap is 15, BUN is 16, creatinine 0.4, glucose is 104, calcium is 9.2. IMPRESSION: 1. Dysphagia. 2. Right femoral neck fracture. 3. Urinary tract infection 4. CSH s/p pacemaker. 5. Anemia. 6. Dementia. 7. Constipation. 8. Thrush. PLAN: Ms. Santiago is an 84-year-old female with a history of dementia and carotid sinus hypersensitivity, status post pacemaker. GI has been following her for dysphagia. A speech therapist evaluated and recommendation that the patient have only liquids with aspiration precaution. Palliative consult has been ordered. Family does not want any procedures to be done. They want the patient to be comfortable and are willing to go with hospice care. We will continue to provide supportive care to the patient and follow the plan of care per PCP. This plan was discussed with Dr. Momin. Please call us for any further questions or concerns. Dictated by FERNANDO Gibson for Angel Luis Momin MD Physician Attestation I have seen and examined the patient. I have discussed and reviewed the note by Tanja KING and agree with findings and plan as documented. POWER
[2019-11-09 12:11] VITALS: BP 119/52
--- NOTE | 2019-11-09 16:40 | DISCHARGE SUMMARY ---
ADMISSION DATE: 10/30/2019 DISCHARGE DATE: 11/09/2019 DISCHARGE DISPOSITION: [facility] with hospice care. DISCHARGE CONDITION: The patient is drowsy most of the times, does not appear in any discomfort. CODE STATUS: DNR level 1, comfort measures only. DISCHARGE DIAGNOSES: 1. Mechanical fall leading to right femoral neck fracture. 2. Acute encephalopathy. 3. Dementia. 4. Atrial fibrillation with rapid ventricular rate. 5. Suspected seizure. 6. Urinary tract infection with Escherichia coli. 7. Bilateral lower lobe pneumonia. 8. Odynophagia next. OTHER DIAGNOSIS: 1. History of seizures. 2. Hypothyroidism. 3. Alzheimer dementia with behavioral disturbance. DISCHARGE MEDICATIONS: 1. Briviact 100 mg orally b.i.d. 2. Magnesium hydroxide 200 mg every 4 hours as needed. 3. Acetaminophen 650 mg every 4 hours as needed. 4. Depakote 750 mg b.i.d. 5. Zofran 4 mg oral every 4 hours as needed for nausea and vomiting. 6. Roxanol 0.5 mg/mL concentration solution 2 mL every 3 hours as needed for pain. VITALS: At the time of discharge temperature of 98.6 degrees, pulse 78, respiratory rate 12, blood pressure 120/52, saturating 99% 3 L nasal cannula. PHYSICAL EXAMINATION: Ms Santiago was not in acute distress. Oral cavity was dry. Air entry bilaterally equal. No wheeze, rhonchi, crackles. S1, S2 normal. Not tachycardic. Irregularly irregular. No murmur or gallop. Abdomen: Scaphoid, soft, nontender. No lower extremity edema. She had right-sided thigh lateral vinicio with dressing of recent orthopedic procedure. CONSULTATIONS: Orthopedic Dr. Ojeda, neurology Dr. Tarango. PROCEDURES: The patient underwent closed reduction and percutaneous pinning of right impacted femoral neck fracture. HOSPITAL COURSE SUMMARY: Ms. Santiago is 84 years old lady who initially had presented on 08/30/2019 after a fall. Apparently she had fell at the assisted and was found to have right-sided femoral neck fracture which was diagnosed through x-rays performed over there so she was brought to the emergency room. In the emergency room CT scan of the pelvis was performed which had suggested fracture of the right femoral neck with mild impaction. Head and neck and cervical spine CT did not have any acute pathology or intracranial pathology. She also had WBC count of 20,000 and pyuria. She was started on IV fluids, IV antibiotics, IV pain medication. Orthopedics team was consulted. The patient underwent closed reduction and percutaneous pinning of her fracture by orthopedic team on 11/01/2019 which she tolerated well and postoperatively she was kept on adequate pain management and on anticoagulation for DVT prophylaxis. Postoperative she did developed episodes of confusion where she was not able to eat by mouth and appeared delirious. She also had atrial fibrillation with rapid ventricular rate. She was started on rate control medication and therapeutic anticoagulation following which her heart rate was well controlled. However considering her acute encephalopathy and intermittent jerky movements, seizure concern were faced. She was resumed higher than her routine dose of valproate and brivaracetam was re-added back after consultation with Neurology and the dose was increased. After antiseizure medication administration patient was seizure-free. The patient's daughter has been involved in her care and she was at bedside. Patient's daughter had mentioned that considering her age and poor functional status she would like to pursue comfort measures only and would like to refrain from any aggressive measures. Further workup of her dysphagia was not performed and GI had recommended just conservative management. The patient's code status was changed to DNR level 1 and comfort measures only and she had completed course of intravenous antibiotics for pneumonia, urine infection so she was deemed appropriate for the discharge to assisted with hospice care facility where she provided antiseizure medication and pain medications as needed. Plan of care were discussed with the patient. TIME SPENT: More than 30 minutes of time was spent discharging this patient. All of her questions have been answered. LABS: At the time of discharge WBC 17,000, hemoglobin 9.7, platelet 378,000. BUN 16, creatinine 0.4. Blood culture did not have any growth. Urine culture had E coli which was sensitive to cefazolin, Bactrim and Zosyn. SIGNIFICANT IMAGING: Pelvic CT on October 30 had suggested fracture of the right femoral neck with mild impaction. cc: Joseph Jain MD
--- NOTE | 2019-11-09 18:20 | EEG REPORT ---
DATE: 11/07/2019 COMMENT: This is a digitally recorded EEG on an 84-year-old patient with reported baseline dementia, remote history of seizures, recent difficulty maintaining alertness. FINDINGS: During waking, some muscle contraction and eye blink artifact are occasionally prominent, but do not hinder interpretation. The record is composed of mostly 4-6 hertz theta occurring symmetrically across the hemispheres at [id number] amplitude. There is occasional higher amplitude rhythmic theta at 6-7 hertz across the central and posterior regions. There is infrequent slowing into the delta range frontally while awake at 2-3 hertz symmetrically. There was not variation to correlate with spontaneous drowsing and sleep. Photic stimulation did not significantly alter the record. There were several sharply contoured waves which were sometimes associated with movement and sometimes were associated with drowsing, and some of these could not be clearly ruled out as epileptiform discharges. No electrographic seizure was recorded. INTERPRETATION: Abnormal EEG because of generalized slowing. CORRELATION: This is indicative of a diffuse encephalopathy and is nonspecific. This would correlate with her reported baseline dementia. There were some questionable waveforms, but no evidence of subclinical seizure on this record. cc: MD POWER Kapadia III
== END 2019-11-09 15:05 | DRG 480 ==
LOC: SUPCPDRO → ED 14:57 → 4N 19:27 → SUATTDRO 19:27
PROVIDERS: ATTEND Internal Medicine